=== PATIENT | female | born 1955 | race Two or more races ===

== ENCOUNTER → 2017-06-12 | Outpatient (CLI) | payer MEDICARE, OTHER ==
[~2017-06-12] MED LIST: ATOR10TA PO; CHOL500023 PO; LISI10TA6 PO; MELO-85 PO; METF-370 PO; METO-169 PO
== END | disposition home or self-care (01) ==
LOC: Rad HDHVI 10:57
PROVIDERS: ATTEND Internal Medicine Cardiovascular Disease
DX: I10 Essential (primary) hypertension (principal); E78.2 Mixed hyperlipidemia
CPT/HCPCS: 93306

== ENCOUNTER → 2019-09-27 | Outpatient (CLI) | payer MEDICARE, OTHER ==
[~2019-09-27] VITALS: Ht 162.6 cm; Wt 113.4 kg
[~2019-09-27] MED LIST changes: +ADENOSINE 90 MG/30 ML INJ IV ONE; +ADENOSINE 95 MG in GIVE UN-DILUTED 0 ML IV ONE; -MELO-85 PO; +MELO1TAB73 PO
== END | disposition home or self-care (01) ==
LOC: Rad HDHVI 12:51
PROVIDERS: ATTEND Internal Medicine Cardiovascular Disease
DX: E11.9 Type 2 diabetes mellitus without complications (principal); R00.0 Tachycardia, unspecified; I42.1 Obstructive hypertrophic cardiomyopathy; I27.81 Cor pulmonale (chronic); E78.00 Pure hypercholesterolemia, unspecified; I10 Essential (primary) hypertension
CPT/HCPCS: 78452; 93005; 93306; 96374; 96375; A9500; J0153

== ENCOUNTER → 2020-12-25 | Outpatient (CLI) | payer MEDICARE, OTHER ==
[~2020-12-25] VITALS: Ht 162.6 cm; Wt 135.2 kg
[~2020-12-25] MED LIST changes: +ADENOSINE 114 MG in GIVE UN-DILUTED 0 ML IV ONE; -ADENOSINE 95 MG in GIVE UN-DILUTED 0 ML IV ONE; +LISI-716 PO; -LISI10TA6 PO; -METO-169 PO; +METO-289 PO
== END | disposition home or self-care (01) ==
LOC: Rad HDHVI 14:01
PROVIDERS: ATTEND Internal Medicine Cardiovascular Disease
DX: I10 Essential (primary) hypertension (principal); E78.5 Hyperlipidemia, unspecified; E11.21 Type 2 diabetes mellitus with diabetic nephropathy; E11.42 Type 2 diabetes mellitus with diabetic polyneuropathy; Z82.49 Family history of ischemic heart disease and other diseases of the circulatory system
CPT/HCPCS: 78452; 93005; 96374; 96375; A9500; J0153

== ENCOUNTER → 2022-01-17 | Outpatient (CLI) | payer MEDICARE, OTHER ==
[~2022-01-17] MED LIST changes: -ADENOSINE 114 MG in GIVE UN-DILUTED 0 ML IV ONE; -ADENOSINE 90 MG/30 ML INJ IV ONE
== END | disposition home or self-care (01) ==
LOC: Rad HDHVI 10:28
PROVIDERS: ATTEND Internal Medicine Cardiovascular Disease
DX: I51.7 Cardiomegaly (principal); I10 Essential (primary) hypertension; E78.5 Hyperlipidemia, unspecified
CPT/HCPCS: 93306

== ENCOUNTER → 2022-01-29 | Outpatient (CLI) | payer MEDICARE, OTHER ==
[~2022-01-29] VITALS: Ht 162.6 cm; Wt 148.8 kg
[~2022-01-29] MED LIST changes: +ADENOSINE 125 MG in GIVE UN-DILUTED 0 ML IV ONE; +ADENOSINE 90 MG/30 ML INJ IV ONE
== END | disposition home or self-care (01) ==
LOC: Rad HDHVI 12:37
PROVIDERS: ATTEND Internal Medicine Cardiovascular Disease
DX: I10 Essential (primary) hypertension (principal); E11.9 Type 2 diabetes mellitus without complications; E78.5 Hyperlipidemia, unspecified; Z82.49 Family history of ischemic heart disease and other diseases of the circulatory system
CPT/HCPCS: 78452; 93005; 96374; 96375; A9500; J0153

== ENCOUNTER → 2024-12-20 | Outpatient (CLI) | payer MEDICARE, OTHER ==
[~2024-12-20] MED LIST changes: -ADENOSINE 125 MG in GIVE UN-DILUTED 0 ML IV ONE; -ADENOSINE 90 MG/30 ML INJ IV ONE; -LISI-716 PO; +LISI10TA34 PO; -MELO1TAB73 PO; +MELO7.5T7 PO
[2024-12-20 13:00] VITALS: BP 129/65; PULSE 74; RESP 20; O2SAT 97
[2024-12-20] MEDS: methylPREDNISolone SOD SUCC 125 MG/2 ML VL IV ONE (13:00)
[2024-12-20] MEDS: cefTRIAXone 1GM/50ML D5W 50 ML IV ONE ×2 (13:00→13:03)
[2024-12-20] MEDS: SODIUM CHLORIDE 0.9% 500 ML IV ONE (13:00)
[2024-12-20] MEDS: methylPREDNISolone SOD SUCC 125 MG/2 ML VL ONE (13:03)
[2024-12-20] MEDS: IOHEXOL 350 MG/ML 100ML IJ ONE (13:05)
--- NOTE | 2024-12-20 15:30 | DVH ---
Procedure: CT CHEST WITH CONTRAST 12/20/2024 02:34 PM History: RECURRING PNUEMONIA Comparison: None Technique: After the uneventful administration of contrast intravenously, CT imaging was performed th rough the chest. Coronal and sagittal reformations were performed by the technologist. 3D image postprocessing was performed on a dedicated workstation and images were used for interpretat ion and reporting. Radiation Dose : CT Dose: CTDI volume is 29.02 mGy. Dose-length product is 1145.87 mGy*cm Findings: Lower neck: Normal thyroid. Lungs: No focal consolidation. Heart/Vascular Structures: Enlargement of the main pulmonary artery measuring up to 3.4 cm. This may represent a component of underlying pulmonary arterial hypertension. Lymph Nodes: No adenopathy Pleura: No pleural effusion or significant pneumothorax. Musculoskeletal: No acute osseous abnormality. Degenerative changes of the spine. Soft tissues: Normal. Upper abdomen: Bilateral fat containing adrenal nodules likely representing adrenal myelolipomas marko uring 3.7 cm on the left and 1.3 cm on the right. IMPRESSION: No evidence of acute intrathoracic pathology identified.
[2024-12-20 15:40] VITALS: BP 127/80; PULSE 87; RESP 18; O2SAT 98
== END | disposition home or self-care (01) ==
LOC: Rad HDHVI 12:41
PROVIDERS: ATTEND Internal Medicine Cardiovascular Disease
DX: J18.9 Pneumonia, unspecified organism (principal); E86.0 Dehydration; R05.9 Cough, unspecified; R09.89 Other specified symptoms and signs involving the circulatory and respiratory systems; Z90.710 Acquired absence of both cervix and uterus
CPT/HCPCS: 71260; 96361; 96365; 96375; G0463; J0696; J2919; J7040; Q9967; 96360

== ENCOUNTER → 2024-12-26 | Outpatient (CLI) | payer MEDICARE, OTHER | END | disposition home or self-care (01) | LOC: Rad HDHVI 13:05 | PROVIDERS: ATTEND Internal Medicine Cardiovascular Disease | DX: I10 Essential (primary) hypertension (principal); E78.5 Hyperlipidemia, unspecified | CPT/HCPCS: 93306 ==

== ENCOUNTER 2025-08-17 10:47 | Inpatient (IN) | payer MEDICARE, OTHER ==
[~2025-08-17] VITALS: Ht 162.6 cm; Wt 76.8 kg
[~2025-08-17 10:47] MED LIST changes: +BUME1TAB3 PO; +CLOP75TA70 PO; +IBUP-1455 PO; +POTA-180 PO
--- NOTE | 2025-08-17 11:08 | ED.PDOC ---
HPI Comments This is a 70 year old female presenting to the ED with chief complaint of chest pain. Patient reports that she has been experiencing left sided facial pain with associated dizzy spells, and bilateral leg swelling for the past few days, however, she started to experience left sided chest discomfort radiating down her left arm since 3am. Patient relays that she visited Dr. Bronson's office on Thursday and she was told her platelet level was "through the roof." Patient states she called Dr. Bronosn this morning and was told to come into the ED for further evaluation and have the ED doctor call his office. Patient denies any SOB, N/V, abdominal pain, headache, syncope, or numbness. Time Seen by MD: 11:01 Primary Care Provider: DR BRONSON Reviewed Notes: Nurses Notes, Medications, Allergies Allergies: Coded Allergies: Hydromorphone (Verified Allergy, Mild, 06/16/11) Tramadol (Verified Allergy, Unknown, 09/27/19) Home Meds Reported Medications Bumetanide (Bumetanide) 1 Mg Tab, 1 TAB PO DAILY for 30 Days, #30 08/21/25 Ibuprofen Micronized (Ibuprofen) 800 Mg Tab, 1 TAB PO TID for 30 Days, #30 08/21/25 Potassium Chloride (Potassium Chloride ER) 20 Meq Tab, 1 TAB PO DAILY for 30 Days, #30 08/21/25 Clopidogrel Bisulfate (CLOPIDOGREL) 75 Mg Tab, 1 TAB PO DAILY for 30 Days, #30 08/21/25 Atorvastatin Calcium (Lipitor) 10 Mg Tab, 1 TAB PO HS for 60 Days, #60 03/11/17 Lisinopril (Lisinopril) 10 Mg Tab, 10 MG PO BID for 60 Days, #120 03/11/17 Metoprolol Succinate (Metoprolol Succinate Er) 50 Mg Tab, 1 TAB PO DAILY for 60 Days, #60 03/11/17 Metformin Hydrochloride (Metformin Hcl) 500 Mg Tab, 1 TAB PO DAILY for 60 Days, #60 03/11/17 Information Source: Patient Mode of Arrival: Wheelchair Severity: Moderate Timing: Hours Duration: Since onset Prehospital treatment: None Location: Chest (L) Radiation: Jaw, Arm (L) Quality: Aching Onset: At Rest Cardiac Risk Factors: HTN, None PE Risk Factors: None Past Medical History PAST MEDICAL HISTORY: CHF, HTN Surgical History: Appendectomy, Cholecystectomy, , Hysterectomy LATIN TEACHER History: Denies all LATIN TEACHER Hx Family History Family History: No family hx of Heart rustam, No family hx of HTN Social History Smoker: Non-Smoker Alcohol: Denies ETOH Use Drugs: Denies Drug Use Lives In: Home Constitutional: denies: chills, diaphoresis, fatigue, fever, malaise, sweats, weakness, others EENTM: denies: blurred vision, double vision, ear bleeding, ear discharge, ear drainage, ear pain, ear ringing, eye pain, eye redness, hearing loss, mouth pain, mouth swelling, nasal discharge, nose bleeding, nose congestion, nose pain, photophobia, tearing, throat pain, throat swelling, voice changes, others Respiratory: denies: cough, hemoptysis, orthopnea, SOB at rest, shortness of breath, SOB with excertion, stridor, wheezing, others Cardiovascular: reports: chest pain, dizzy spells, edema, left arm pain; denies: diaphoresis, Dyspnea on exertion, irregular heart beat, lightheadedness, palpitations, PND, syncope, others Gastrointestinal: denies: abdomen distended, abdominal pain, blood streaked bowels, constipated, diarrhea, dysphagia, difficulty swallowing, hematemesis, melena, nausea, poor appetite, poor fluid intake, rectal bleeding, rectal pain, vomiting, others Genitourinary: denies: abnormal vagina bleeding, burning, dyspareunia, dysuria, flank pain, frequency, hematuria, incontinence, pain, , vagina discharge, urgency, others Neurological: denies: dizziness, fainting, headache, left sided numbness, left sided weakness, numbness, paresthesia, pre-existing deficit, right sided numbness, right sided weakness, seizure, speech problems, tingling, tremors, weakness, others Musculoskeletal: denies: back pain, gout, joint pain, joint swelling, muscle pain, muscle stiffness, neck pain, others Integumetry: denies: bruises, change in color, change in hair/nails, dryness, laceration, lesions, lumps, rash, wounds, others Allergic/Immunocompromised: denies: Difficulty Healing, Frequent Infections, Hives, Itching, others Hematologic/Lymphatic: denies: anemia, blood clots, easy bleeding, easy bruising, swollen glands, others Endocrine: denies: excessive hunger, excessive sweating, excessive thirst, excessive urination, flushing, intolerance to cold, intolerance to heat, unexplained weight gain, unexplained weight loss, others Psychiatric: denies: anxiety, bipolar disorder, depression, hopeless, panic disorder, schizophrenia, sleepless, suicidal, others All Other Systems: Reviewed and Negative Physical Exam General Appearance: No Apparent Distress, Obese HEENT: Normal ENT Inspection, Pharynx Normal, TMs Normal Neck: Full Range of Motion, Non-Tender, Normal, Normal Inspection Respiratory: Chest Non-Tender, Lungs Clear, No Accessory Muscle Use, No Respiratory Distress, Normal Breath Sounds Cardiovascular: No JVD, No Murmur, No Gallop, Normal Peripheral Pulses, Regular Rate/Rhythm, Other (Bilateral lower extremity 2+ pitting edema) Breast Exam: Deferred Gastrointestinal: No Organomegaly, Non Tender, No Pulsatile Mass, Normal Bowel Sounds, Soft Genitalia: Deferred Pelvic: Deferred Rectal: Deferred Extremities: No calf tenderness, Normal capillary refill, Normal inspection, Normal range of motion, Non-tender, Pedal edema Musculoskeletal : Apperance: Normal Neurologic: Alert, technical writer II-XII nml as Tested, No Motor Deficits, Normal Affect, Normal Mood, No Sensory Deficits Cerebellar Function: Normal Reflexes: Normal Skin: Dry, Normal Color, Warm Lymphatic: No Adenopathy Was a procedure done? Was a procedure done?: No CP Differential Dx Differential Diagnosis: MAT, [place], PAC's Differential Diagnosis: Medical NonCompliance, Induced Differential Diagnosis: Chest Wall Pain, Myocardial Infarction, Pericarditis X-Ray, Labs, Meds, VS Vital Signs Date Time Temp Pulse Resp B/P (MAP) Pulse Ox O2 Delivery O2 Flow Rate FiO2 08/17/25 18:45 98.0 92 21 140/67 (91) 93 98.0 08/17/25 18:45 21 93 Nasal Cannula* 2 28 08/17/25 17:47 83 16 132/69 (90) 97 08/17/25 13:51 66 08/17/25 13:30 63 18 132/69 (90) 94 08/17/25 11:51 65 08/17/25 11:07 98.1 65 18 150/69 93 98.1 08/17/25 10:53 66 Lab Test 08/17/25 13:08 08/17/25 11:45 08/17/25 10:58 Range/Units Urine Color Light-yellow Yellow Urine Clarity Clear Clear Urine pH 6.0 5.0-9.0 Urine Specific [place] 1.023 1.001-1.035 Urine Protein Negative Negative Urine Ketones Negative Negative Urine Blood Negative Negative /uL Urine Nitrite Negative Negative Urine Bilirubin Negative Negative Urine Urobilinogen Normal Negative mg/dL Urine Leukocyte Esterase Negative Negative /uL Urine RBC 2 0 - 4 /hpf Urine Microscopic WBC 1 0-5 /HPF Urine Squamous Epithelial Cells Few <5 /hpf Urine Bacteria Few H None Seen /hpf Urine Glucose Normal Normal mg/dL Troponin I High Sensitivity < 3 L < 3 L </=34 ng/L White Blood Count 12.1 H 4.4-10.8 10^3/uL Red Blood Count 4.82 4.0-5.20 10^6/uL Hemoglobin 13.0 12.2-16.2 g/dL Hematocrit 40.5 36.0-46.0 % Mean Corpuscular Volume 83.9 80.0-100.0 fL Mean Corpuscular Hemoglobin 26.9 L 28.0-32.0 pg Mean Corpuscular Hemoglobin Concent 32.1 32.0-36.0 g/dL Red Cell Distribution Width 16.1 H 11.8-14.3 % Platelet Count 1262 *H 140-450 10^3/uL Mean Platelet Volume 7.3 6.9-10.8 fL Neutrophils (%) (Auto) 82.3 H 37.0-80.0 % Lymphocytes (%) (Auto) 7.4 L 10.0-50.0 % Monocytes (%) (Auto) 6.9 0.0-12.0 % Eosinophils (%) (Auto) 3.1 0.0-7.0 % Basophils (%) (Auto) 0.3 0.0-2.0 % Neutrophils # (Auto) 9.9 H 1.6-8.6 10 ^3/uL Lymphocytes # (Auto) 0.9 0.4-5.4 10 ^3/uL Monocytes # (Auto) 0.8 0-1.3 10 ^3/uL Eosinophils # (Auto) 0.4 0-0.8 10 ^3/uL Basophils # (Auto) 0 0-0.2 10 ^3/uL Nucleated Red Blood Cells 0.1 % Platelet Estimate Markedly increased Anisocytosis (manual) Slight Sodium Level 143 136-145 mmol/L Potassium Level 4.6 3.5-5.1 mmol/L Chloride Level 106 98-107 mmol/L Carbon Dioxide Level 26 20-31 mmol/L Anion Gap 11 5-15 Blood Urea Nitrogen 31 H 9-23 mg/dL Creatinine 1.12 H 0.550-1.02 mg/dL Glomerular Filtration Rate Calc 53 >90 mL/min BUN/Creatinine Ratio 27.7 H 10.0-20.0 Serum Glucose 94 74-106 mg/dL Calcium Level 9.4 8.7-10.4 mg/dL B-Type Natriuretic Peptide 55.04 0-100 pg/mL Time of 1ST Reevaluation: 12:00 Reevaluation 1ST: Unchanged Patient Education/Counseling: Diagnosis, Treatment Family Education/Counseling: No Family Present SEPSIS Sepsis Screen Physician Orders Electrocardigram (08/17/25 10:59) Electrocardigram (08/17/25 11:59) Electrocardigram (08/17/25 13:59) Chest Portable (08/17/25 10:59) Head Without Contrast (08/17/25 16:22) Vital Signs Date Time Temp Pulse Resp B/P (MAP) Pulse Ox O2 Delivery O2 Flow Rate FiO2 08/17/25 18:45 98.0 92 21 140/67 (91) 93 98.0 08/17/25 18:45 21 93 Nasal Cannula* 2 28 08/17/25 17:47 83 16 132/69 (90) 97 08/17/25 13:51 66 08/17/25 13:30 63 18 132/69 (90) 94 08/17/25 11:51 65 08/17/25 11:07 98.1 65 18 150/69 93 98.1 08/17/25 10:53 66 Laboratory Tests Test 08/17/25 10:58 White Blood Count 12.1 10^3/uL (4.4-10.8) H Departure 1 Departure Time of Disposition: 06:15 (Patient presented with chest pain that was co ncerning for possible STEMI, ACS, PE, Pneumonia, Muscle Strain, COPD, Dissection. Data: 1. I ordered and reviewed the result of at least 3 labs including a CBC, BMP, and Troponin. 2. I independently interpreted the following tests: EKG which shows sinus arrhythmia and Chest X-ray which shows benign chest.Risk:This patient has a high risk of morbidity due to further diagnostic testing or treatment and may suffer from an acute cardiac or respiratory disorder. Workup reveals concern for ACS and patient should be admitted for further workup and possible expert consultation. ) Impression: Primary Impression: Acute chest pain Disposition: ADMITTED INPATIENT Admit to: Tele Condition: Guarded Critical Care Note Critical Care Time?: Yes Critical care comment: Acute chest pain Authorized and Performed by: Rosina Solomon MD Total critical care time: Approximately 39 minutes Due to a high probability of clinically significant, life threatening deterioration, the patient required my highest level of preparedness to intervene emergently and I personally spent this critical care time directly and personally managing the patient. This critical care time included obtaining a history; examining the patient; pulse oximetry; ordering and review of studies; arranging urgent treatment with development of a management plan; evaluation of patient's response to treatment; frequent reassessment; and, discussions with other providers. This critical care time was performed to assess and manage the high probability of imminent, life-threatening deterioration that could result in multi-organ failure. It was exclusive of separately billable procedures and treating other patients and teaching time. Please see my other sections and the rest of the note for further information on patient assessment and treatment. Stability Stability form required: No Heart Score Heart Score: Heart Score Response (Comments) Value History Highly Suspicious 2 EKG Normal 0 Age >65 2 Risk Factors >3 or Hx ASHD 2 Troponin >3 x's Normal limit 2 Total 8 I personally scribed for ROSINA SOLOMON MD ([email or web address]) on 08/17/25 at 11:08. Electronically submitted by Jean Martin ([email or web address]). ROSINA SOLOMON MD Aug 17, 2025 11:08
--- NOTE | 2025-08-17 11:47 | DVH ---
INDICATION: sob TECHNIQUE: Frontal view of the chest. COMPARISON: CT CHEST WITH CONTRAST on DOS: 12/20/24 FINDINGS: Cardiomegaly with CHF.. The heart and mediastinal contours are grossly unremarkable. There is no dario dence of pleural disease. The lungs are clear. The bony structures of the chest are intact without fracture. IMPRESSION: 1. Cardiomegaly with CHF
[2025-08-17 13:20] LABS: Urine Protein, UAD Negative (Negative)
--- NOTE | 2025-08-17 17:04 | DVH ---
CT HEAD WITHOUT CONTRAST Indication: [facility] EXAM DATE: 08/17/2025 04:29 PM COMPARISON: None TECHNIQUE: CT of the head without intravenous contrast. RADIATION DOSE: CTDIvol: 57 mGy, DLP: 1009 mGy*cm FINDINGS: There is no intracranial hemorrhage. There is no extra-axial fluid, mass, mass effect or midline shif t. The ventricles are midline and normal in size. Basilar cisterns are patent. Smith-white differentia tion is maintained. Mastoids well pneumatized. Mild ethmoid sinus and left maxillary sinus disease.. Imaged portion of th e orbits are unremarkable. Bilateral extra auditory calcifications likely sequela of chronic otitis e xterna. The left mandibular condyle is subluxed anteriorly. IMPRESSION: No intracranial hemorrhage or mass effect. Subluxation of the left mandibular condyle anteriorly out of the condylar groove. Correlate for disl ocation.
[2025-08-17 18:45] VITALS: RESP 21; O2SAT 93
[2025-08-17] MEDS ORDERED: ONDANSETRON HCL 4 MG/2 ML VIAL IV PRN (19:30)
[2025-08-17] MEDS ORDERED: HYDROcodone-ACET 5/325MG TAB PO PRN (19:30)
[2025-08-17] MEDS ORDERED: NITROGLYCERIN 0.4 MG SL TAB SL PRN (19:30)
[2025-08-17] MEDS ORDERED: MORPHINE SULFATE INJ 2 MG/ml SYRG IV PRN (19:30)
--- NOTE | 2025-08-17 19:33 | DVHHP2 ---
History of Present Illness Reason for Visit: Chest pain History of Present Illness 70-year-old female presents for evaluation of chest pain. Patient reports being awakened today 3:30 a.m. with substernal chest pressure that was radiating to her left arm. She also associated having shortness for breath. No nausea or vomiting. She reports not being able to lay flat. She also reports worsening bilateral lower extremity swelling. Past Medical History Hypertension, congestive heart failure Past Surgical History Cholecystectomy, appendectomy, , hysterectomy Family History Noncontributory Smoke: No ALCOHOL: none Drugs: None Lives: with Family Review of Systems Review of Systems Review of systems are currently negative otherwise addressed in HPI. Allergies: Coded Allergies: Hydromorphone (Verified Allergy, Mild, 06/16/11) Tramadol (Verified Allergy, Unknown, 09/27/19) Medications Current Medications Medications Dose Ordered Sig/Pavel Route Start Time Stop Time Status Last Admin Dose Admin Furosemide 20 mg BIDD IV 08/18/25 06:00 UNV Clopidogrel Bisulfate 75 mg DAILY PO 08/18/25 10:00 UNV Lisinopril 10 mg BID PO 08/17/25 22:00 UNV Metoprolol Succinate 50 mg DAILY PO 08/18/25 10:00 UNV Atorvastatin Calcium 10 mg HS PO 08/17/25 22:00 UNV Acetaminophen/ Hydrocodone Bitart 1 tab Q4HP PRN PO 08/17/25 19:30 UNV Ondansetron HCl 4 mg Q4HP PRN IV 08/17/25 19:30 UNV Enoxaparin Sodium 40 mg DAILY SC 08/18/25 10:00 UNV Acetaminophen 650 mg Q6HP PRN PO 08/17/25 19:30 UNV Nitroglycerin 0.4 mg Q5MINP PRN SL 08/17/25 19:30 UNV Morphine Sulfate 2 mg Q30M PRN IV 08/17/25 19:30 UNV Exam Vital Signs Vital Signs Date Time Temp Pulse Resp B/P (MAP) Pulse Ox O2 Delivery O2 Flow Rate FiO2 08/17/25 18:45 98.0 92 21 140/67 (91) 93 98.0 Exam Gen: 70-year-old female in mild distress, morbidly obese Skin: Warm, dry, normal color and texture, no rash. HEENT: Normocephalic atraumatic, mucous membranes moist and pink. Neck: Cervical and supraclavicular nodes normal without enlargement, trachea is midline, thyroid gland is normal without masses. Pulmonary: Clear to auscultation and percussion bilaterally. Cardiac: Regular rate and rhythm. No murmur Abdomen: Soft, nontender, nondistended, bowel sounds present all 4 quadrants, no guarding, no rigidity, no organomegaly. Extremities: No cyanosis, clubbing, plus two bilateral pedal edema Neuro: Cranial nerves II through XII grossly intact, normal affect and speech, no focal motor deficits. Labs/Xrays ORDERING PHYSICIAN: ROSINA SOLOMON MD PROCEDURE(s): CXRP - CHEST PORTABLE REASON: sob ORDER NUMBER(s): [id number], ACCESSION NUMBER(s): [id number] INDICATION: sob TECHNIQUE: Frontal view of the chest. COMPARISON: CT CHEST WITH CONTRAST on DOS: 12/20/24 FINDINGS: Cardiomegaly with CHF.. The heart and mediastinal contours are grossly un remarkable. There is no evidence of pleural disease. The lungs are clear. The bony structures of the chest are intact without fracture. IMPRESSION: 1. Cardiomegaly with CHF Labs Test 08/17/25 13:08 Range/Units Urine Color Light-yellow Yellow Urine Clarity Clear Clear Urine pH 6.0 5.0-9.0 Urine Specific [place] 1.023 1.001-1.035 Urine Protein Negative Negative Urine Ketones Negative Negative Urine Blood Negative Negative /uL Urine Nitrite Negative Negative Urine Bilirubin Negative Negative Urine Urobilinogen Normal Negative mg/dL Urine Leukocyte Esterase Negative Negative /uL Urine RBC 2 0 - 4 /hpf Urine Microscopic WBC 1 0-5 /HPF Urine Squamous Epithelial Cells Few <5 /hpf Urine Bacteria Few H None Seen /hpf Urine Glucose Normal Normal mg/dL SEPSIS Sepsis Screen Date sepsis recognized/suspect: Aug 17, 2025 Time Sepsis recognized/suspect: 1110 Recent Procedure: No On Antibiotic Therapy: No Respiratory Rate >20: No Heart Rate >90: No Temp<36 C (96.8 F) or >38.3 C: No SBP <90 or MAP <65 mmHG: No New Acute Mental Status Change: No Is the patient on CPAP, BIPAP,: No Physician Orders Head Without Contrast (9/18/25 16:22) * Hematology/Oncology Consult (08/17/25 19:17) Furosemide Injection (Lasix Injection) (08/18/25 06:00) Bilat Lower Dvt (08/17/25 19:17) B-Type Natriuretic Peptide (08/17/25 19:17) Clopidogrel Bisulfate (Plavix) (08/18/25 10:00) Lisinopril Tablet (Zestril Tablet) (08/17/25 22:00) Metoprolol Xl Succinate (Toprol Xl) (08/18/25 10:00) Atorvastatin (Lipitor) (08/17/25 22:00) * Cardiology Consult (08/17/25 19:17) Basic Metabolic Panel (08/18/25 04:00) Admit (08/17/25 19:17) Hydrocodone-Acet 5/325mg Tab ([place] 5/32 (08/17/25 19:30) Ondansetron Hcl (Zofran) (08/17/25 19:30) Enoxaparin Sodium (Lovenox) (08/18/25 10:00) Cardiac Diet-2gna,Lofat,Lochol (08/18/25 Breakfast) Condition: Stable (08/17/25 19:17) Acetaminophen Tablet (Tylenol Tablet) (08/17/25 19:30) Bedrest With Bathroom Privileg (08/17/25 19:17) Nitroglycerin Sublingual (Ntrostat Subli (08/17/25 19:30) Morphine Sulfate Injection (08/17/25 19:30) Stat Ekg For Chest Pain (08/17/25 19:17) Notify Md Of Changes From Base (08/17/25 19:17) Automobile Damage Appraiser For 24 Hours (08/17/25 19:17) Emergency Dysrhythmia Protocol (08/17/25 19:17) Rhythm Strips Once Every Shift (08/17/25 19:17) Oxygen By Nasal Cannula (08/17/25 19:17) Vital Signs Date Time Temp Pulse Resp B/P (MAP) Pulse Ox O2 Delivery O2 Flow Rate FiO2 08/17/25 18:45 98.0 92 21 140/67 (91) 93 98.0 08/17/25 17:47 83 16 132/69 (90) 97 08/17/25 13:51 66 08/17/25 13:30 63 18 132/69 (90) 94 08/17/25 11:51 65 Assessment/Plan Assessment/Plan Assessment Chest pain Thrombocytosis Congestive heart failure Plan Admit the patient to telemetry to the hospitalist Cardiology consultation Hematology consult Resume home medications IV Lasix DVT study pending Continue treatment per orders. Plan discussed with: Patient My Orders Orders - KARLA PATTON AGACNP Procedure Category Date Status Time * Hematology/Oncology CONS 08/17/25 Transmitted Consult 19:17 Furosemide Injection PHA 08/18/25 Logged (Lasix Injection) 06:00 Bilat Lower Dvt US 08/17/25 Logged 19:17 B-Type Natriuretic LAB 08/17/25 Logged Peptide 19:17 Clopidogrel Bisulfate PHA 08/18/25 Logged (Plavix) 10:00 Lisinopril Tablet PHA 08/17/25 Logged (Zestril Tablet) 22:00 Metoprolol Xl PHA 08/18/25 Logged Succinate (Toprol Xl) 10:00 Atorvastatin (Lipitor) PHA 08/17/25 Logged 22:00 * Cardiology Consult CONS 08/17/25 Transmitted 19:17 Basic Metabolic Panel LAB 08/18/25 Verified 04:00 Admit ADMIT 08/17/25 Transmitted 19:17 Hydrocodone-Acet PHA 08/17/25 Logged 5/325mg Tab ([place] 19:30 Ondansetron Hcl PHA 08/17/25 Logged (Zofran) 19:30 Enoxaparin Sodium PHA 08/18/25 Logged (Lovenox) 10:00 Cardiac DIET 08/18/25 Transmitted Diet-2gna,Lofat,Lochol Breakfast Condition: Stable ESTELLA 08/17/25 In Process 19:17 Acetaminophen Tablet PHA 08/17/25 Logged (Tylenol Tablet) 19:30 Bedrest With Bathroom ESTELLA 08/17/25 In Process Privileg 19:17 Nitroglycerin PHA 08/17/25 Logged Sublingual (Ntrostat 19:30 Morphine Sulfate PHA 08/17/25 Logged Injection 19:30 Stat Ekg For Chest ESTELLA 08/17/25 In Process Pain 19:17 Notify Of Changes ESTELLA 08/17/25 In Process From Base 19:17 Automobile Damage Appraiser For ESTELLA 08/17/25 In Process 24 Hours 19:17 Emergency Dysrhythmia [facility] 08/17/25 In Process Protocol 19:17 Rhythm Strips Once [facility] 08/17/25 In Process Every Shift 19:17 Oxygen By Nasal RT 08/17/25 Transmitted Cannula 19:17 Date of Service: Aug 17, 2025 Billing Provider: KARLA PATTON Common Visit Codes: [id number] INP/OBS CARE (HIGH) KARLA PATTON Aug 17, 2025 19:33
[2025-08-17 20:16] LABS: Hemoglobin 13.0 g/dL (12.2-16.2); Mean Corpuscular Volume 83.9 fL (80.0-100.0)
[2025-08-17 20:17] LABS: Hematocrit 40.5 % (36.0-46.0); Mean Corpuscular Hemoglobin 26.9 pg (28.0-32.0); Nucleated Red Blood Cells % 0.1 %
[2025-08-17 20:18] LABS: Chloride 106 mmol/L (98-107); Potassium 4.6 mmol/L (3.5-5.1); Sodium 143 mmol/L (136-145)
[2025-08-17 20:19] LABS: Anion Gap 11 (5-15); Calcium 9.4 mg/dL (8.7-10.4); Carbon Dioxide 26 mmol/L (20-31)
[2025-08-17 20:24] LABS: BUN/Creatinine Ratio 27.7 (10.0-20.0); Glucose 94 mg/dL (74-106)
--- NOTE | 2025-08-17 20:26 | DVH ---
Bilateral lower extremity venous duplex Clinical History: r/o dvt Comparison: None Technique: Duplex Doppler evaluation of the deep venous systems of both lower extremities from the common femora l veins to the popliteal veins including color Doppler and spectral/pulsed waveform analysis was perf ormed. Findings: RIGHT SIDE: The common femoral vein demonstrates appropriate compressibility and waveform variability. There is compressibility/patency of the great saphenous vein at the proximal thigh. The femoral vein demonstrates appropriate compressibility and waveform variability. The deep femoral vein demonstrates appropriate compressibility and waveform variability. The popliteal vein demonstrates appropriate compressibility and waveform variability. There is normal compressibility at the tibioperoneal trunk. LEFT SIDE: The common femoral vein demonstrates appropriate compressibility and waveform variability. There is compressibility/patency of the great saphenous vein at the proximal thigh. The femoral vein demonstrates appropriate compressibility and waveform variability. The deep femoral vein demonstrates appropriate compressibility and waveform variability. The popliteal vein demonstrates appropriate compressibility and waveform variability. There is normal compressibility at the tibioperoneal trunk. Impression: 1. No right or left femoropopliteal venous thrombosis.
[2025-08-17 21:11] LABS: Blood Urea Nitrogen 31 mg/dL (9-23)
[2025-08-17] MEDS: ATORVASTATIN 20 MG TAB PO SCH (21:36)
[2025-08-17] MEDS: LISINOPRIL 20 MG TAB PO SCH (21:36)
[2025-08-17 21:50] LABS: Anisocytosis Slight
[2025-08-18] VITALS (9 sets, daily range): BP systolic 119–142; BP diastolic 67–81; PULSE 64–91; RESP 14–19; TEMP 97.7–98.2; O2SAT 78–99
[2025-08-18 04:43] LABS: Anion Gap 8 (5-15); Carbon Dioxide 30 mmol/L (20-31); Chloride 107 mmol/L (98-107); Potassium 4.7 mmol/L (3.5-5.1)
[2025-08-18 04:44] LABS: Calcium 9.3 mg/dL (8.7-10.4)
[2025-08-18 04:49] LABS: BUN/Creatinine Ratio 29.3 (10.0-20.0)
[2025-08-18 04:52] LABS: Blood Urea Nitrogen 34 mg/dL (9-23); Glucose 131 mg/dL (74-106); Sodium 145 mmol/L (136-145)
[2025-08-18] MEDS: FUROSEMIDE 20 MG/2 ML VIAL IV SCH (06:00)
[2025-08-18] MEDS: CLOPIDOGREL BISULFATE 75 MG TAB PO SCH (10:57)
[2025-08-18] MEDS: METOPROLOL SUCCINATE XL 50 MG TAB PO SCH (10:58)
[2025-08-18] MEDS: ENOXAPARIN SOD 40 MG/0.4 ML SYRINGE SC SCH (10:59)
--- NOTE | 2025-08-18 13:35 | DVHPN2 ---
Reviewed: Care Plan, H&P, Labs, Medications, Previous Orders, Radiology Changes from previous H/P or p: No Changes Objective Vitals Vital Signs Date Time Temp Pulse Resp B/P (MAP) Pulse Ox O2 Delivery O2 Flow Rate FiO2 08/18/25 12:52 98.1 79 16 119/67 (84) 78 98.1 08/17/25 19:30 Nasal Cannula* 2 28 Medications Current Medications Medications Dose Ordered Sig/Pavel Route Start Time Stop Time Status Last Admin Dose Admin Furosemide 20 mg BIDD IV 08/18/25 06:00 Clopidogrel Bisulfate 75 mg DAILY PO 08/18/25 10:00 08/18/25 10:57 75 MG Lisinopril 10 mg BID PO 08/17/25 22:00 08/18/25 10:58 10 MG Metoprolol Succinate 50 mg DAILY PO 08/18/25 10:00 08/18/25 10:58 50 MG Atorvastatin Calcium 10 mg HS PO 08/17/25 22:00 08/17/25 21:36 10 MG Acetaminophen/ Hydrocodone Bitart 1 tab Q4HP PRN PO 08/17/25 19:30 Ondansetron HCl 4 mg Q4HP PRN IV 08/17/25 19:30 Enoxaparin Sodium 40 mg DAILY SC 08/18/25 10:00 08/18/25 10:59 40 MG Acetaminophen 650 mg Q6HP PRN PO 08/17/25 19:30 Nitroglycerin 0.4 mg Q5MINP PRN SL 08/17/25 19:30 Morphine Sulfate 2 mg Q30M PRN IV 08/17/25 19:30 Laboratory Results Laboratory Tests 08/17/25 10:58 08/18/25 03:30 Chemistry Test 08/18/25 03:30 Calcium Level 9.3 mg/dL (8.7-10.4) Urinalysis Test 08/17/25 13:08 Urine Color Light-yellow (Yellow) Urine Clarity Clear (Clear) Urine pH 6.0 (5.0-9.0) Urine Specific [place] 1.023 (1.001-1.035) Urine Protein Negative (Negative) Urine Ketones Negative (Negative) Urine Blood Negative /uL (Negative) Urine Nitrite Negative (Negative) Urine Bilirubin Negative (Negative) Urine Urobilinogen Normal mg/dL (Negative) Urine Leukocyte Esterase Negative /uL (Negative) Urine RBC 2 /hpf (0 - 4) Urine Microscopic WBC 1 /HPF (0-5) Urine Squamous Epithelial Cells Few /hpf (<5) Urine Bacteria Few /hpf (None Seen) H Urine Glucose Normal mg/dL (Normal) Labs and/or images reviewed: Labs reviewed by me, Image(s) reviewed by me Assessment/Plan Assessment/Plan Chest pain troponin negative, cardiology consult for Dr. Tilley Thrombocytosis platelet 1200, consult for Hematology Acute CHF exacerbation: Lasix consult for Dr. Lopez Hypotension CT head negative DVT ruled out Time spent 50 minutes Plan discussed with: Patient My Orders Orders - AGUS LEWIS MD Procedure Category Date Status Time * Cardiology Consult CONS 08/18/25 Transmitted 13:31 Date of Service: Aug 18, 2025 Billing Provider: AGUS LEWIS MD Common Visit Codes: [id number] INP/OBS CARE(HIGH) AGUS LEWIS MD Aug 18, 2025 13:35
[2025-08-18] MEDS ORDERED: FUROSEMIDE INJECTION 100 MG in SODIUM CHL 0.9% 100 ML IV SCH (14:15)
--- NOTE | 2025-08-18 14:20 | DVHPN2 ---
Progress Note - Dictate Date Seen: Aug 17, 2025 Medical Necessity Reason Pt with a Central, PICC or Fol: No Subjective PT WELL KNOWN TO ME OBESITY PAH RIGHT SIDED HEART FAILURE WITH PRESERVED SYSTOLIC FUNCTION ANASARCA FELIX METABOLIC SYNDROME vital signs Vital Sign Date Time Temp Pulse Resp B/P (MAP) Pulse Ox O2 Delivery O2 Flow Rate FiO2 08/18/25 12:52 98.1 79 16 119/67 (84) 78 98.1 08/17/25 19:30 Nasal Cannula* 2 28 medications Current Medications Medications Dose Ordered Sig/Pavel Route Start Time Stop Time Status Last Admin Dose Admin Furosemide 20 mg BIDD IV 08/18/25 06:00 Clopidogrel Bisulfate 75 mg DAILY PO 08/18/25 10:00 08/18/25 10:57 75 MG Lisinopril 10 mg BID PO 08/17/25 22:00 08/18/25 10:58 10 MG Metoprolol Succinate 50 mg DAILY PO 08/18/25 10:00 08/18/25 10:58 50 MG Atorvastatin Calcium 10 mg HS PO 08/17/25 22:00 08/17/25 21:36 10 MG Acetaminophen/ Hydrocodone Bitart 1 tab Q4HP PRN PO 08/17/25 19:30 Ondansetron HCl 4 mg Q4HP PRN IV 08/17/25 19:30 Enoxaparin Sodium 40 mg DAILY SC 08/18/25 10:00 08/18/25 10:59 40 MG Acetaminophen 650 mg Q6HP PRN PO 08/17/25 19:30 Nitroglycerin 0.4 mg Q5MINP PRN SL 08/17/25 19:30 Morphine Sulfate 2 mg Q30M PRN IV 08/17/25 19:30 laboratory and microbiology Laboratory Tests 08/18/25 03:30 08/17/25 10:58 Test 08/18/25 03:30 Range/Units Serum Glucose 131 H 74-106 mg/dL Problem List OBESITY PAH RIGHT SIDED HEART FAILURE WITH PRESERVED SYSTOLIC FUNCTION ANASARCA FELIX METABOLIC SYNDROME Assessment/Plan LASIX DRIP ABG DAILY BMP FOR K+ MONITORING Plan discussed with: Patient Critical Care Time(min): 35 AUDIE SYLVESTER MD Aug 18, 2025 14:20
--- NOTE | 2025-08-18 14:20 | DVHPN2 ---
Progress Note - Dictate Date Seen: Aug 18, 2025 Medical Necessity Reason Pt with a Central, PICC or Fol: No Subjective PT WELL KNOWN TO ME OBESITY PAH RIGHT SIDED HEART FAILURE WITH PRESERVED SYSTOLIC FUNCTION ANASARCA FELIX METABOLIC SYNDROME vital signs Vital Sign Date Time Temp Pulse Resp B/P (MAP) Pulse Ox O2 Delivery O2 Flow Rate FiO2 08/18/25 12:52 98.1 79 16 119/67 (84) 78 98.1 08/17/25 19:30 Nasal Cannula* 2 28 medications Current Medications Medications Dose Ordered Sig/Pavel Route Start Time Stop Time Status Last Admin Dose Admin Furosemide 20 mg BIDD IV 08/18/25 06:00 Clopidogrel Bisulfate 75 mg DAILY PO 08/18/25 10:00 08/18/25 10:57 75 MG Lisinopril 10 mg BID PO 08/17/25 22:00 08/18/25 10:58 10 MG Metoprolol Succinate 50 mg DAILY PO 08/18/25 10:00 08/18/25 10:58 50 MG Atorvastatin Calcium 10 mg HS PO 08/17/25 22:00 08/17/25 21:36 10 MG Acetaminophen/ Hydrocodone Bitart 1 tab Q4HP PRN PO 08/17/25 19:30 Ondansetron HCl 4 mg Q4HP PRN IV 08/17/25 19:30 Enoxaparin Sodium 40 mg DAILY SC 08/18/25 10:00 08/18/25 10:59 40 MG Acetaminophen 650 mg Q6HP PRN PO 08/17/25 19:30 Nitroglycerin 0.4 mg Q5MINP PRN SL 08/17/25 19:30 Morphine Sulfate 2 mg Q30M PRN IV 08/17/25 19:30 laboratory and microbiology Laboratory Tests 08/18/25 03:30 08/17/25 10:58 Test 08/18/25 03:30 Range/Units Serum Glucose 131 H 74-106 mg/dL Problem List OBESITY PAH RIGHT SIDED HEART FAILURE WITH PRESERVED SYSTOLIC FUNCTION ANASARCA FELIX METABOLIC SYNDROME Assessment/Plan LASIX DRIP ABG DAILY BMP FOR K+ MONITORING Plan discussed with: Patient AUDIE SYLVESTER MD Aug 18, 2025 14:20
[2025-08-18 16:56] LABS: Hemoglobin 12.8 g/dL (12.2-16.2); Mean Corpuscular Hemoglobin 26.4 pg (28.0-32.0); Nucleated Red Blood Cells % 0.0 %
[2025-08-18 16:58] LABS: Hematocrit 40.1 % (36.0-46.0); Mean Corpuscular Volume 82.8 fL (80.0-100.0)
[2025-08-18 17:10] LABS: Alanine Aminotransferase 13 U/L (7-40); Alkaline Phosphatase 103 U/L (46-116); Anion Gap 11 (5-15); BUN/Creatinine Ratio 37.8 (10.0-20.0); Potassium 4.4 mmol/L (3.5-5.1); Sodium 144 mmol/L (136-145); Total Protein 5.9 g/dL (5.7-8.2)
[2025-08-18 17:11] LABS: Albumin 3.5 g/dL (3.2-4.8)
[2025-08-18 17:12] LABS: Bilirubin, Total 1.5 mg/dL (0.2-1.0); Blood Urea Nitrogen 37 mg/dL (9-23); Calcium 9.1 mg/dL (8.7-10.4); Carbon Dioxide 25 mmol/L (20-31); Chloride 108 mmol/L (98-107); Glucose 115 mg/dL (74-106)
[2025-08-18] MEDS: FUROSEMIDE INJECTION 100 MG in SODIUM CHL 0.9% 100 ML IV SCH (17:40)
[2025-08-19] VITALS (9 sets, daily range): BP systolic 92–133; BP diastolic 49–85; PULSE 68–96; RESP 16–18; TEMP 97.1–98.6; O2SAT 91–99
[2025-08-19 07:30] LABS: Nucleated Red Blood Cells % 0.0 %
[2025-08-19 07:33] LABS: Hematocrit 39.5 % (36.0-46.0); Hemoglobin 13.1 g/dL (12.2-16.2); Mean Corpuscular Hemoglobin 26.6 pg (28.0-32.0); Mean Corpuscular Volume 80.3 fL (80.0-100.0)
[2025-08-19 08:00] LABS: Chloride 99 mmol/L (98-107); Potassium 3.7 mmol/L (3.5-5.1); Sodium 143 mmol/L (136-145)
[2025-08-19] MEDS: POTASSIUM EFFERVESENT TAB 25 MEQ PO SCH (08:44)
--- NOTE | 2025-08-19 09:14 | DVHPN2 ---
Reviewed: Care Plan, H&P, Labs, Medications, Previous Orders, Radiology Changes from previous H/P or p: No Changes Objective Vitals Vital Signs Date Time Temp Pulse Resp B/P (MAP) Pulse Ox O2 Delivery O2 Flow Rate FiO2 08/19/25 05:00 98.0 77 18 119/78 (92) 95 98.0 08/18/25 20:00 Nasal Cannula* 2 28 Intake/Output Intake and Output 08/19/25 07:00 Intake Total 820 ml Output Total 3200 ml Balance -2380 ml Intake Oral 600 ml IV Total 220 ml Output Urine Total 3200 ml # Voids 5 Medications Current Medications Medications Dose Ordered Sig/Pavel Route Start Time Stop Time Status Last Admin Dose Admin Clopidogrel Bisulfate 75 mg DAILY PO 08/18/25 10:00 08/18/25 10:57 75 MG Lisinopril 10 mg BID PO 08/17/25 22:00 08/18/25 21:30 10 MG Metoprolol Succinate 50 mg DAILY PO 08/18/25 10:00 08/18/25 10:58 50 MG Atorvastatin Calcium 10 mg HS PO 08/17/25 22:00 08/18/25 21:29 10 MG Acetaminophen/ Hydrocodone Bitart 1 tab Q4HP PRN PO 08/17/25 19:30 Ondansetron HCl 4 mg Q4HP PRN IV 08/17/25 19:30 Enoxaparin Sodium 40 mg DAILY SC 08/18/25 10:00 08/18/25 10:59 40 MG Acetaminophen 650 mg Q6HP PRN PO 08/17/25 19:30 Nitroglycerin 0.4 mg Q5MINP PRN SL 08/17/25 19:30 Morphine Sulfate 2 mg Q30M PRN IV 08/17/25 19:30 Potassium Bicarbonate 50 meq DAILY PO 08/19/25 10:00 Furosemide 100 mg/ Sodium Chloride 110 ml @ 22 mls/hr Q5H IV 08/18/25 17:15 08/19/25 03:50 22 MLS/HR Laboratory Results Laboratory Tests 08/19/25 06:04 Chemistry Test 08/18/25 16:30 08/19/25 06:04 Albumin 3.5 g/dL (3.2-4.8) Pending Calcium Level 9.1 mg/dL (8.7-10.4) Pending Total Protein 5.9 g/dL (5.7-8.2) Pending Cardiac Markers Test 08/19/25 06:04 B-Type Natriuretic Peptide 23.22 pg/mL (0-100) LFT Test 08/18/25 16:30 08/19/25 06:04 Alanine Aminotransferase (ALT) 13 U/L (7-40) Pending Alkaline Phosphatase 103 U/L (46-116) Pending Aspartate Amino Transferase (AST) 16 U/L (13-40) Pending Total Bilirubin 1.5 mg/dL (0.2-1.0) H Pending Urinalysis Test 08/17/25 13:08 Urine Color Light-yellow (Yellow) Urine Clarity Clear (Clear) Urine pH 6.0 (5.0-9.0) Urine Specific [place] 1.023 (1.001-1.035) Urine Protein Negative (Negative) Urine Ketones Negative (Negative) Urine Blood Negative /uL (Negative) Urine Nitrite Negative (Negative) Urine Bilirubin Negative (Negative) Urine Urobilinogen Normal mg/dL (Negative) Urine Leukocyte Esterase Negative /uL (Negative) Urine RBC 2 /hpf (0 - 4) Urine Microscopic WBC 1 /HPF (0-5) Urine Squamous Epithelial Cells Few /hpf (<5) Urine Bacteria Few /hpf (None Seen) H Urine Glucose Normal mg/dL (Normal) Labs and/or images reviewed: Labs reviewed by me, Image(s) reviewed by me Assessment/Plan Assessment/Plan Chest pain troponin negative, cardiology consult for Dr. Tilley appreciated Thrombocytosis platelet 1200, consult for Hematology Acute CHF exacerbation: Lasix drip, potassium supplementation, consult for Dr. Lopez Pulmonary hypertension with right-sided heart failure with the preserved systolic function Anasarca Metabolic syndrome Dyspnea on exertion Hypertension CT head negative DVT ruled out Time spent 50 minutes Plan discussed with: Patient My Orders Orders - AGUS LEWIS MD Procedure Category Date Status Time * Cardiology Consult CONS 08/18/25 Transmitted 13:31 Comprehensive LAB 08/19/25 In Process Metabolic Panel 04:00 Complete Blood Count LAB 08/20/25 Verified 04:00 Comprehensive LAB 08/20/25 Verified Metabolic Panel 04:00 Date of Service: Aug 19, 2025 Billing Provider: AGUS LEWIS MD Common Visit Codes: [id number] INP/OBS CARE(HIGH) AGUS LEWIS MD Aug 19, 2025 09:14
[2025-08-19 09:26] LABS: Anion Gap 14 (5-15); Calcium 9.4 mg/dL (8.7-10.4); Carbon Dioxide 30 mmol/L (20-31)
[2025-08-19 09:31] LABS: Alkaline Phosphatase 102 U/L (46-116); BUN/Creatinine Ratio 25.0 (10.0-20.0); Glucose 101 mg/dL (74-106)
[2025-08-19 09:32] LABS: Total Protein 7.0 g/dL (5.7-8.2)
[2025-08-19 09:33] LABS: Alanine Aminotransferase 12 U/L (7-40); Albumin 3.9 g/dL (3.2-4.8)
[2025-08-19 09:34] LABS: Bilirubin, Total 1.5 mg/dL (0.2-1.0); Blood Urea Nitrogen 28 mg/dL (9-23)
[2025-08-20] VITALS (9 sets, daily range): BP systolic 93–122; BP diastolic 46–67; PULSE 65–102; RESP 16–18; TEMP 96.9–97.8; O2SAT 90–98
[2025-08-20 07:21] LABS: Hemoglobin 12.6 g/dL (12.2-16.2); Mean Corpuscular Volume 79.8 fL (80.0-100.0); Nucleated Red Blood Cells % 0.0 %
[2025-08-20 07:25] LABS: Hematocrit 38.2 % (36.0-46.0); Mean Corpuscular Hemoglobin 26.3 pg (28.0-32.0)
[2025-08-20 07:42] LABS: Alkaline Phosphatase 97 U/L (46-116); Anion Gap 11 (5-15); BUN/Creatinine Ratio 20.0 (10.0-20.0); Calcium 9.0 mg/dL (8.7-10.4); Glucose 103 mg/dL (74-106); Sodium 138 mmol/L (136-145); Total Protein 6.5 g/dL (5.7-8.2)
[2025-08-20 07:43] LABS: Albumin 3.7 g/dL (3.2-4.8)
[2025-08-20 07:52] LABS: Alanine Aminotransferase < 9 U/L (7-40); Bilirubin, Total 1.7 mg/dL (0.2-1.0); Blood Urea Nitrogen 27 mg/dL (9-23); Carbon Dioxide 34 mmol/L (20-31); Chloride 93 mmol/L (98-107); Potassium 3.4 mmol/L (3.5-5.1)
--- NOTE | 2025-08-20 07:58 | DVHPN2 ---
Reviewed: Care Plan, H&P, Labs, Medications, Previous Orders, Radiology Changes from previous H/P or p: No Changes Objective Vitals Vital Signs Date Time Temp Pulse Resp B/P (MAP) Pulse Ox O2 Delivery O2 Flow Rate FiO2 08/20/25 05:05 87 16 118/63 (81) 97 08/20/25 05:00 97.1 97.1 08/19/25 20:00 Nasal Cannula* 2 28 Intake/Output Intake and Output 08/20/25 07:00 Intake Total 1420 ml Output Total 4050 ml Balance -2630 ml Intake Oral 1200 ml IV Total 220 ml Output Urine Total 4050 ml Medications Current Medications Medications Dose Ordered Sig/Pavel Route Start Time Stop Time Status Last Admin Dose Admin Clopidogrel Bisulfate 75 mg DAILY PO 08/18/25 10:00 08/19/25 08:45 75 MG Lisinopril 10 mg BID PO 08/17/25 22:00 08/19/25 08:45 10 MG Metoprolol Succinate 50 mg DAILY PO 08/18/25 10:00 08/19/25 08:44 50 MG Atorvastatin Calcium 10 mg HS PO 08/17/25 22:00 08/19/25 21:11 10 MG Acetaminophen/ Hydrocodone Bitart 1 tab Q4HP PRN PO 08/17/25 19:30 Ondansetron HCl 4 mg Q4HP PRN IV 08/17/25 19:30 Enoxaparin Sodium 40 mg DAILY SC 08/18/25 10:00 08/19/25 08:43 40 MG Acetaminophen 650 mg Q6HP PRN PO 08/17/25 19:30 Nitroglycerin 0.4 mg Q5MINP PRN SL 08/17/25 19:30 Morphine Sulfate 2 mg Q30M PRN IV 08/17/25 19:30 Potassium Bicarbonate 50 meq DAILY PO 08/19/25 10:00 08/19/25 08:44 50 MEQ Furosemide 100 mg/ Sodium Chloride 110 ml @ 22 mls/hr Q5H IV 08/18/25 17:15 08/20/25 04:46 22 MLS/HR Laboratory Results Laboratory Tests 08/20/25 05:50 Chemistry Test 08/20/25 05:50 Albumin 3.7 g/dL (3.2-4.8) Calcium Level 9.0 mg/dL (8.7-10.4) Total Protein 6.5 g/dL (5.7-8.2) Cardiac Markers Test 08/20/25 05:50 B-Type Natriuretic Peptide 7.32 pg/mL (0-100) LFT Test 08/20/25 05:50 Alanine Aminotransferase (ALT) < 9 U/L (7-40) Alkaline Phosphatase 97 U/L (46-116) Aspartate Amino Transferase (AST) 14 U/L (13-40) Total Bilirubin 1.7 mg/dL (0.2-1.0) H Urinalysis Test 08/17/25 13:08 Urine Color Light-yellow (Yellow) Urine Clarity Clear (Clear) Urine pH 6.0 (5.0-9.0) Urine Specific [place] 1.023 (1.001-1.035) Urine Protein Negative (Negative) Urine Ketones Negative (Negative) Urine Blood Negative /uL (Negative) Urine Nitrite Negative (Negative) Urine Bilirubin Negative (Negative) Urine Urobilinogen Normal mg/dL (Negative) Urine Leukocyte Esterase Negative /uL (Negative) Urine RBC 2 /hpf (0 - 4) Urine Microscopic WBC 1 /HPF (0-5) Urine Squamous Epithelial Cells Few /hpf (<5) Urine Bacteria Few /hpf (None Seen) H Urine Glucose Normal mg/dL (Normal) Labs and/or images reviewed: Labs reviewed by me, Image(s) reviewed by me Assessment/Plan Assessment/Plan Chest pain troponin negative, cardiology consult for Dr. Tilley appreciated Thrombocytosis platelet 1200, consult for Hematology Acute CHF exacerbation: Lasix drip, potassium supplementation, consult for Dr. Lopez Pulmonary hypertension with right-sided heart failure with the preserved systolic function Anasarca Metabolic syndrome Dyspnea on exertion Hypertension CT head negative DVT ruled out Time spent 50 minutes Rapid flu test pending Christi test pending Plan discussed with: Patient, Other (RN) Date of Service: Aug 20, 2025 Billing Provider: AGUS LEWIS MD Common Visit Codes: [id number] INP/OBS CARE(HIGH) AGUS LEWIS MD Aug 20, 2025 07:57
[2025-08-20 18:20] LABS: COVID19 ANTIGEN SOFIA FIA NEGATIVE (NEGATIVE)
[2025-08-20 18:24] LABS: Nucleated Red Blood Cells % 0.0 %
[2025-08-20 18:25] LABS: Hematocrit 39.6 % (36.0-46.0); Hemoglobin 13.2 g/dL (12.2-16.2); Mean Corpuscular Hemoglobin 26.5 pg (28.0-32.0); Mean Corpuscular Volume 79.7 fL (80.0-100.0)
[2025-08-20 18:40] LABS: Alanine Aminotransferase 13 U/L (7-40); Albumin 3.6 g/dL (3.2-4.8); Alkaline Phosphatase 103 U/L (46-116); Anion Gap 10 (5-15); BUN/Creatinine Ratio 20.8 (10.0-20.0); Calcium 8.9 mg/dL (8.7-10.4); Potassium 3.9 mmol/L (3.5-5.1); Sodium 137 mmol/L (136-145); Total Protein 6.2 g/dL (5.7-8.2)
[2025-08-20 18:44] LABS: Bilirubin, Total 2.1 mg/dL (0.2-1.0); Blood Urea Nitrogen 38 mg/dL (9-23); Carbon Dioxide 36 mmol/L (20-31); Chloride 91 mmol/L (98-107); Glucose 155 mg/dL (74-106)
--- NOTE | 2025-08-20 23:01 | DVH ---
EXAM: CT HEAD WITHOUT CONTRAST INDICATION: ALOC TECHNIQUE: CT of the head without intravenous contrast. Radiation Dose Information: CT Dose: CTDI volume is 57.31 mGy. Dose-length product is 1014.8 mGy*cm The dose indicators for CT are the volume Computed Tomography (CT) Dose Index (CTDIvol) and the Dose Length Product (DLP), and are measured in units of mGy and mGy-cm, respectively. These indicators are not patient dose, but values generated from the CT scanner acquisition factors. The report includes radiation exposure data for exposures received during this examination. COMPARISON: CT HEAD WITHOUT CONTRAST on DOS: 08/17/25 FINDINGS: There is no evidence of acute intracranial hemorrhage, extra-axial collection, mass effect, midline s hift, herniation or hydrocephalus. The ventricles, sulci and cisterns are age appropriate. The sheets-white differentiation is intact. Patchy periventricular and subcortical white matter hypoattenuation is nonspecific but may be related to small vessel ischemic disease. Remote lacunar infarct within the right thymus. The visualized paranasal sinuses and mastoid air cells are clear. The surrounding soft tissues and osseous structures are unremarkable. IMPRESSION: 1. No acute intracranial abnormality.
[2025-08-21] VITALS (9 sets, daily range): BP systolic 97–118; BP diastolic 42–73; PULSE 85–105; RESP 16–20; TEMP 97.5–98.7; O2SAT 86–97
--- NOTE | 2025-08-21 10:33 | DVHPN2 ---
Progress Note Date Seen: Aug 21, 2025 Medical Necessity Reason Pt with a Central, PICC or Fol: Yes The following are medically ne: Cheney Catheter Reason for cheney catheter: Strict I&O Subjective Patient reports: No new complaints Review of Systems: HEENT:Normal, CVS:Normal, RESPIRATORY:Normal, GI:Normal, :Normal, MSK:Normal, NEURO:Normal Objective vital signs Vital Sign Date Time Temp Pulse Resp B/P (MAP) Pulse Ox O2 Delivery O2 Flow Rate FiO2 08/21/25 09:00 97.9 96 20 115/60 (78) 86 97.9 08/20/25 20:00 Nasal Cannula* 2 28 Total Intake and Output 08/20/25 08/20/25 08/21/25 15:00 23:00 07:00 Intake Total 650 ml 1000 ml Output Total 675 ml 450 ml Balance -25 ml 550 ml medications Current Medications Medications Dose Ordered Sig/Pavel Route Start Time Stop Time Status Last Admin Dose Admin Clopidogrel Bisulfate 75 mg DAILY PO 08/18/25 10:00 08/21/25 09:26 75 MG Lisinopril 10 mg BID PO 08/17/25 22:00 08/19/25 08:45 10 MG Metoprolol Succinate 50 mg DAILY PO 08/18/25 10:00 08/19/25 08:44 50 MG Atorvastatin Calcium 10 mg HS PO 08/17/25 22:00 08/20/25 21:03 10 MG Acetaminophen/ Hydrocodone Bitart 1 tab Q4HP PRN PO 08/17/25 19:30 Ondansetron HCl 4 mg Q4HP PRN IV 08/17/25 19:30 Enoxaparin Sodium 40 mg DAILY SC 08/18/25 10:00 08/21/25 09:29 40 MG Acetaminophen 650 mg Q6HP PRN PO 08/17/25 19:30 Nitroglycerin 0.4 mg Q5MINP PRN SL 08/17/25 19:30 Morphine Sulfate 2 mg Q30M PRN IV 08/17/25 19:30 Potassium Bicarbonate 50 meq DAILY PO 08/19/25 10:00 08/21/25 09:26 50 MEQ Examination: GENERAL:Normal, HEENT:Normal, NECK:Normal, LUNGS:Normal, CVS:Normal, ABDOMEN:Normal, MSK:Normal, MSK:Abnormal (CELLULITIS BOTH LEGS, EDEMA+), SKIN:Normal, NEURO:Normal, :Normal laboratory and microbiology Laboratory Tests 08/20/25 18:14 Test 08/20/25 18:14 Range/Units Serum Glucose 155 H 74-106 mg/dL Problem List/Assessment/Plan Problem List/Assessment/Plan #1 acute on chronic diastolic heart failure: was on lasix #2 cellulitis both legs with ?sepsis: iv ancef #3 morbid obesity #4 acute renal failure ?vasomotor nephropathy #5 thrombocytosis advance care planning: full code- time spent 19 mins Plan discussed with: Patient Date of Service: Aug 21, 2025 Billing Provider: KARLA JENKINS MD Common Visit Codes: [id number] INP/OBS CARE(HIGH) Secondary Visit Codes: [id number] CARE PLAN 30 MINUTES KARLA JENKINS MD Aug 21, 2025 10:33
--- NOTE | 2025-08-21 12:39 | ECG ---
[facility] Test Date: 2025-08-20 Test Time: 16:38:49 Pat Name: JALEEL ALFARO Department: Respiratoy Room: 0216T A Gender: F Android Programmer: ALFREDO : 1955 Requested By: JEFERSON WILSON Order Number: [id number] Reading MD: Nguyễn Cedeño Measurements Intervals [place] Rate: 102 P: 37 IN: 151 QRS: 131 QRSD: 102 T: 31 QT: 344 QTc: 449 Interpretive Statements Sinus tachycardia Right axis deviation Abnormal R-wave progression, late transition Borderline T abnormalities, anterior leads Electronically Signed On 08-21-2025 18:35:11 PDT by Nguyễn Cedeño Please click the below link to view image of tracing.
[2025-08-21] MEDS: ceFAZolin 1GM/50ML 50 ML IV ONE (12:53)
[2025-08-21] MEDS: ceFAZolin 1GM/50ML 50 ML IV SCH (13:02)
--- NOTE | 2025-08-21 13:52 | DVHPN2 ---
Progress Note - Dictate Date Seen: Aug 21, 2025 Medical Necessity Reason Pt with a Central, PICC or Fol: Yes The following are medically ne: Cheney Catheter Reason for cheney catheter: Strict I&O Subjective PT WELL KNOWN TO ME OBESITY PAH RIGHT SIDED HEART FAILURE WITH PRESERVED SYSTOLIC FUNCTION ANASARCA FELIX METABOLIC SYNDROME vital signs Vital Sign Date Time Temp Pulse Resp B/P (MAP) Pulse Ox O2 Delivery O2 Flow Rate FiO2 08/21/25 09:00 97.9 96 20 115/60 (78) 86 97.9 08/21/25 08:00 Nasal Cannula* 2 28 Total Intake and Output 08/20/25 08/20/25 08/21/25 15:00 23:00 07:00 Intake Total 650 ml 1000 ml Output Total 675 ml 450 ml Balance -25 ml 550 ml medications Current Medications Medications Dose Ordered Sig/Pavel Route Start Time Stop Time Status Last Admin Dose Admin Clopidogrel Bisulfate 75 mg DAILY PO 08/18/25 10:00 08/21/25 09:26 75 MG Atorvastatin Calcium 10 mg HS PO 08/17/25 22:00 08/20/25 21:03 10 MG Acetaminophen/ Hydrocodone Bitart 1 tab Q4HP PRN PO 08/17/25 19:30 Ondansetron HCl 4 mg Q4HP PRN IV 08/17/25 19:30 Acetaminophen 650 mg Q6HP PRN PO 08/17/25 19:30 Nitroglycerin 0.4 mg Q5MINP PRN SL 08/17/25 19:30 Morphine Sulfate 2 mg Q30M PRN IV 08/17/25 19:30 Metoprolol Succinate 25 mg DAILY PO 08/22/25 10:00 Cefazolin Sodium 50 ml @ 100 mls/hr Q8HR IV 08/21/25 14:00 08/21/25 13:02 100 MLS/HR Enoxaparin Sodium 60 mg BID SC 08/21/25 22:00 laboratory and microbiology Laboratory Tests 08/20/25 18:14 Test 08/20/25 18:14 Range/Units Serum Glucose 155 H 74-106 mg/dL Problem List OBESITY PAH RIGHT SIDED HEART FAILURE WITH PRESERVED SYSTOLIC FUNCTION ANASARCA FELIX METABOLIC SYNDROME Assessment/Plan LASIX DRIP ABG DAILY BMP FOR K+ MONITORING DC LASIX DRIP Plan discussed with: Patient Critical Care Time(min): 3 AUDIE SYLVESTER MD Aug 21, 2025 13:52
--- NOTE | 2025-08-21 13:58 | DVHPN2 ---
Progress Note - Dictate Date Seen: Aug 20, 2025 Medical Necessity Reason Pt with a Central, PICC or Fol: Yes The following are medically ne: Cheney Catheter Reason for cheney catheter: Strict I&O Subjective PT WELL KNOWN TO ME OBESITY PAH RIGHT SIDED HEART FAILURE WITH PRESERVED SYSTOLIC FUNCTION ANASARCA FELIX METABOLIC SYNDROME vital signs Vital Sign Date Time Temp Pulse Resp B/P (MAP) Pulse Ox O2 Delivery O2 Flow Rate FiO2 08/21/25 09:00 97.9 96 20 115/60 (78) 86 97.9 08/21/25 08:00 Nasal Cannula* 2 28 Total Intake and Output 08/20/25 08/20/25 08/21/25 15:00 23:00 07:00 Intake Total 650 ml 1000 ml Output Total 675 ml 450 ml Balance -25 ml 550 ml medications Current Medications Medications Dose Ordered Sig/Pavel Route Start Time Stop Time Status Last Admin Dose Admin Clopidogrel Bisulfate 75 mg DAILY PO 08/18/25 10:00 08/21/25 09:26 75 MG Atorvastatin Calcium 10 mg HS PO 08/17/25 22:00 08/20/25 21:03 10 MG Acetaminophen/ Hydrocodone Bitart 1 tab Q4HP PRN PO 08/17/25 19:30 Ondansetron HCl 4 mg Q4HP PRN IV 08/17/25 19:30 Acetaminophen 650 mg Q6HP PRN PO 08/17/25 19:30 Nitroglycerin 0.4 mg Q5MINP PRN SL 08/17/25 19:30 Morphine Sulfate 2 mg Q30M PRN IV 08/17/25 19:30 Metoprolol Succinate 25 mg DAILY PO 08/22/25 10:00 Cefazolin Sodium 50 ml @ 100 mls/hr Q8HR IV 08/21/25 14:00 08/21/25 13:02 100 MLS/HR Enoxaparin Sodium 60 mg BID SC 08/21/25 22:00 laboratory and microbiology Laboratory Tests 08/20/25 18:14 Test 08/20/25 18:14 Range/Units Serum Glucose 155 H 74-106 mg/dL Problem List OBESITY PAH RIGHT SIDED HEART FAILURE WITH PRESERVED SYSTOLIC FUNCTION ANASARCA FELIX METABOLIC SYNDROME THROMBOCYTOSIS HYPOVENTILATION SYNDROME Assessment/Plan LASIX DRIP ABG DAILY BMP FOR K+ MONITORING DC LASIX DRIP ABG R/O HYPOVENTILATION SYNDROME Plan discussed with: Patient AUDIE SYLVESTER MD Aug 21, 2025 13:58
[2025-08-21 15:35] LABS: Base Excess 9.8 mmol/L (-2.0-3.0)
[2025-08-21] MEDS: ENOXAPARIN SOD 60 MG/0.6 ML SYRINGE SC SCH (21:17)
[2025-08-22] VITALS (10 sets, daily range): BP systolic 94–137; BP diastolic 50–71; PULSE 65–94; RESP 14–19; TEMP 97.1–98.4; O2SAT 92–100
[2025-08-22] MEDS: ACETAMINOPHEN 325 MG TAB PO PRN (05:36)
[2025-08-22 07:04] LABS: Anion Gap 8 (5-15)
[2025-08-22 07:05] LABS: Calcium 8.9 mg/dL (8.7-10.4)
[2025-08-22 07:10] LABS: BUN/Creatinine Ratio 24.2 (10.0-20.0)
[2025-08-22 07:13] LABS: Blood Urea Nitrogen 29 mg/dL (9-23); Carbon Dioxide 35 mmol/L (20-31); Chloride 90 mmol/L (98-107); Glucose 122 mg/dL (74-106); INR 1.06 (0.9-1.15); Partial Thromboplastin Time 28.9 SEC (24.5-34.5); Potassium 3.4 mmol/L (3.5-5.1); Prothrombin Time 11.2 sec (9.3-11.8); Sodium 133 mmol/L (136-145)
[2025-08-22 07:17] LABS: Hemoglobin 12.3 g/dL (12.2-16.2); Nucleated Red Blood Cells % 0.0 %
[2025-08-22 07:27] LABS: Hematocrit 36.3 % (36.0-46.0); Mean Corpuscular Hemoglobin 26.7 pg (28.0-32.0); Mean Corpuscular Volume 78.9 fL (80.0-100.0)
[2025-08-22] MEDS: METOPROLOL SUCCINATE XL 50 MG TAB PO SCH (09:09)
--- NOTE | 2025-08-22 09:56 | DVHPN2 ---
Progress Note Date Seen: Aug 22, 2025 Medical Necessity Reason Pt with a Central, PICC or Fol: Yes The following are medically ne: Cheney Catheter Reason for cheney catheter: Strict I&O Subjective Patient reports: No new complaints Review of Systems: HEENT:Normal, CVS:Normal, RESPIRATORY:Normal, GI:Normal, :Normal, MSK:Normal, NEURO:Normal Objective vital signs Vital Sign Date Time Temp Pulse Resp B/P (MAP) Pulse Ox O2 Delivery O2 Flow Rate FiO2 08/22/25 09:29 97.3 84 16 137/71 (93) 100 97.3 08/21/25 20:00 Nasal Cannula* 2 28 Total Intake and Output 08/21/25 08/21/25 08/22/25 15:00 23:00 07:00 Intake Total 50 ml 1100 ml 890 ml Output Total 525 ml 1300 ml Balance 50 ml 575 ml -410 ml medications Current Medications Medications Dose Ordered Sig/Pavel Route Start Time Stop Time Status Last Admin Dose Admin Clopidogrel Bisulfate 75 mg DAILY PO 08/18/25 10:00 08/22/25 09:09 75 MG Atorvastatin Calcium 10 mg HS PO 08/17/25 22:00 08/21/25 21:16 10 MG Acetaminophen/ Hydrocodone Bitart 1 tab Q4HP PRN PO 08/17/25 19:30 Ondansetron HCl 4 mg Q4HP PRN IV 08/17/25 19:30 Acetaminophen 650 mg Q6HP PRN PO 08/17/25 19:30 08/22/25 05:36 650 MG Nitroglycerin 0.4 mg Q5MINP PRN SL 08/17/25 19:30 Morphine Sulfate 2 mg Q30M PRN IV 08/17/25 19:30 Metoprolol Succinate 25 mg DAILY PO 08/22/25 10:00 08/22/25 09:09 25 MG Cefazolin Sodium 50 ml @ 100 mls/hr Q8HR IV 08/21/25 14:00 08/22/25 05:26 100 MLS/HR Enoxaparin Sodium 60 mg BID SC 08/21/25 22:00 08/22/25 09:09 60 MG Examination: GENERAL:Normal, HEENT:Normal, NECK:Normal, LUNGS:Normal, CVS:Normal, ABDOMEN:Normal, MSK:Normal, SKIN:Normal, NEURO:Normal, :Normal laboratory and microbiology Laboratory Tests 08/22/25 05:58 Test 08/22/25 05:58 Range/Units Serum Glucose 122 H 74-106 mg/dL Problem List/Assessment/Plan Problem List/Assessment/Plan #1 acute on chronic diastolic heart failure: was on lasix #2 cellulitis both legs with ?sepsis: iv ancef #3 morbid obesity #4 acute renal failure ?vasomotor nephropathy #5 thrombocytosis advance care planning: full code- time spent 19 mins Plan discussed with: Patient My Orders My Orders Orders - KARLA JENKINS MD Procedure Category Date Status Time Metoprolol Xl PHA 08/22/25 In Process Succinate (Toprol Xl) 10:00 Cefazolin 1gm/50ml PHA 08/21/25 In Process (Ancef) 14:00 Pt Request For Service PT 08/21/25 Logged 10:34 Enoxaparin Sodium PHA 08/22/25 Verified (Lovenox) 10:00 Date of Service: Aug 22, 2025 Billing Provider: KARLA JENKINS MD Common Visit Codes: [id number] INP/OBS CARE(HIGH) KARLA JENKINS MD Aug 22, 2025 09:56
[2025-08-22] MEDS: ENOXAPARIN SOD 40 MG/0.4 ML SYRINGE SC SCH (10:00)
--- NOTE | 2025-08-22 12:53 | DVHPN2 ---
Progress Note - Dictate Date Seen: Aug 22, 2025 Medical Necessity Reason Pt with a Central, PICC or Fol: Yes The following are medically ne: Cheney Catheter Reason for cheney catheter: Strict I&O Subjective PT WELL KNOWN TO ME OBESITY PAH RIGHT SIDED HEART FAILURE WITH PRESERVED SYSTOLIC FUNCTION ANASARCA FELIX METABOLIC SYNDROME vital signs Vital Sign Date Time Temp Pulse Resp B/P (MAP) Pulse Ox O2 Delivery O2 Flow Rate FiO2 08/22/25 09:29 97.3 84 16 137/71 (93) 100 97.3 08/22/25 08:15 Nasal Cannula* 2 28 Total Intake and Output 08/21/25 08/21/25 08/22/25 15:00 23:00 07:00 Intake Total 50 ml 1100 ml 890 ml Output Total 525 ml 1300 ml Balance 50 ml 575 ml -410 ml medications Current Medications Medications Dose Ordered Sig/Pavel Route Start Time Stop Time Status Last Admin Dose Admin Clopidogrel Bisulfate 75 mg DAILY PO 08/18/25 10:00 08/22/25 09:09 75 MG Atorvastatin Calcium 10 mg HS PO 08/17/25 22:00 08/21/25 21:16 10 MG Acetaminophen/ Hydrocodone Bitart 1 tab Q4HP PRN PO 08/17/25 19:30 Ondansetron HCl 4 mg Q4HP PRN IV 08/17/25 19:30 Acetaminophen 650 mg Q6HP PRN PO 08/17/25 19:30 08/22/25 05:36 650 MG Nitroglycerin 0.4 mg Q5MINP PRN SL 08/17/25 19:30 Morphine Sulfate 2 mg Q30M PRN IV 08/17/25 19:30 Metoprolol Succinate 25 mg DAILY PO 08/22/25 10:00 08/22/25 09:09 25 MG Cefazolin Sodium 50 ml @ 100 mls/hr Q8HR IV 08/21/25 14:00 08/22/25 05:26 100 MLS/HR Enoxaparin Sodium 40 mg DAILY SC 08/22/25 10:00 laboratory and microbiology Laboratory Tests 08/22/25 05:58 Test 08/22/25 05:58 Range/Units Serum Glucose 122 H 74-106 mg/dL Problem List OBESITY PAH RIGHT SIDED HEART FAILURE WITH PRESERVED SYSTOLIC FUNCTION 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
[2025-08-22] MEDS: POTASSIUM CHL 20 Meq TABLET PO ONE (12:57)
[2025-08-22] MEDS: acetaZOLAMIDE SODIUM 500 MG VL IV ONE (16:16)
[2025-08-23] VITALS (8 sets, daily range): BP systolic 101–133; BP diastolic 51–73; PULSE 60–87; RESP 17–18; TEMP 97.1–98.6; O2SAT 93–96
[2025-08-23 07:20] LABS: Hemoglobin 12.2 g/dL (12.2-16.2); Nucleated Red Blood Cells % 0.0 %
[2025-08-23 07:22] LABS: Hematocrit 36.6 % (36.0-46.0); Mean Corpuscular Hemoglobin 26.9 pg (28.0-32.0); Mean Corpuscular Volume 80.5 fL (80.0-100.0)
[2025-08-23 07:37] LABS: Alanine Aminotransferase 10 U/L (7-40); Albumin 3.4 g/dL (3.2-4.8); Alkaline Phosphatase 106 U/L (46-116); Anion Gap 10 (5-15); BUN/Creatinine Ratio 18.6 (10.0-20.0); Calcium 9.0 mg/dL (8.7-10.4); Magnesium 1.9 mg/dL (1.6-2.6); Total Protein 6.1 g/dL (5.7-8.2)
[2025-08-23 07:46] LABS: Bilirubin, Total 1.5 mg/dL (0.2-1.0); Blood Urea Nitrogen 24 mg/dL (9-23); Carbon Dioxide 32 mmol/L (20-31); Chloride 91 mmol/L (98-107); Glucose 113 mg/dL (74-106); Potassium 3.3 mmol/L (3.5-5.1); Sodium 133 mmol/L (136-145)
--- NOTE | 2025-08-23 09:59 | DVHPN2 ---
Progress Note Date Seen: Aug 23, 2025 Medical Necessity Reason Pt with a Central, PICC or Fol: Yes The following are medically ne: Cheney Catheter Reason for cheney catheter: Strict I&O Subjective Patient reports: No new complaints Review of Systems: HEENT:Normal, CVS:Normal, RESPIRATORY:Normal, GI:Normal, :Normal, MSK:Normal, NEURO:Normal Objective vital signs Vital Sign Date Time Temp Pulse Resp B/P (MAP) Pulse Ox O2 Delivery O2 Flow Rate FiO2 08/23/25 09:22 78 106/58 08/23/25 08:55 98.0 17 95 98.0 08/23/25 08:01 Room Air* 0 21 Total Intake and Output 08/22/25 08/22/25 08/23/25 15:00 23:00 07:00 Intake Total 50 ml 850 ml Output Total 300 ml 975 ml Balance -250 ml -125 ml medications Current Medications Medications Dose Ordered Sig/Pavel Route Start Time Stop Time Status Last Admin Dose Admin Clopidogrel Bisulfate 75 mg DAILY PO 08/18/25 10:00 08/23/25 09:20 75 MG Atorvastatin Calcium 10 mg HS PO 08/17/25 22:00 08/22/25 21:42 10 MG Acetaminophen/ Hydrocodone Bitart 1 tab Q4HP PRN PO 08/17/25 19:30 Ondansetron HCl 4 mg Q4HP PRN IV 08/17/25 19:30 Acetaminophen 650 mg Q6HP PRN PO 08/17/25 19:30 08/23/25 08:23 650 MG Nitroglycerin 0.4 mg Q5MINP PRN SL 08/17/25 19:30 Morphine Sulfate 2 mg Q30M PRN IV 08/17/25 19:30 Metoprolol Succinate 25 mg DAILY PO 08/22/25 10:00 08/23/25 09:22 25 MG Cefazolin Sodium 50 ml @ 100 mls/hr Q8HR IV 08/21/25 14:00 08/23/25 05:14 100 MLS/HR Enoxaparin Sodium 40 mg DAILY SC 08/22/25 10:00 08/23/25 09:21 40 MG Examination: GENERAL:Normal, HEENT:Normal, NECK:Normal, LUNGS:Normal, CVS:Normal, ABDOMEN:Normal, MSK:Normal, SKIN:Normal, NEURO:Normal, :Normal laboratory and microbiology Laboratory Tests 08/23/25 05:50 Test 08/23/25 05:50 Range/Units Serum Glucose 113 H 74-106 mg/dL Problem List/Assessment/Plan Problem List/Assessment/Plan #1 acute on chronic diastolic heart failure: was on lasix #2 cellulitis both legs with ?sepsis: iv ancef #3 morbid obesity #4 acute renal failure ?vasomotor nephropathy #5 thrombocytosis: outpt hem consult advance care planning: full code- time spent 19 mins Plan discussed with: Patient My Orders My Orders Orders - KARLA JENKINS MD Procedure Category Date Status Time Potassium Er Tablet PHA 08/23/25 Verified (Klor-Con Tablet) 10:00 * Adoption Social Worker CONS 08/23/25 Verified Consult Dietary Evaluation Review Comments: Nutrition Recommendation: 1) Refer Exterior Work Helper for weight management 2) Monitor PO intake, lab values, weight trend, and I/O Expected Outcomes/Goals: To meet >75% estimated needs Fu 3-5 days Date of Service: Aug 23, 2025 Billing Provider: KARLA JENKINS MD Common Visit Codes: [id number] INP/OBS CARE(HIGH) KARLA JENKINS MD Aug 23, 2025 09:59
[2025-08-23] MEDS: POTASSIUM CHL 20 Meq TABLET PO ONE (12:02)
--- NOTE | 2025-08-23 13:27 | DVHPN2 ---
Progress Note - Dictate Date Seen: Aug 23, 2025 Medical Necessity Reason Pt with a Central, PICC or Fol: Yes The following are medically ne: Cheney Catheter Reason for cheney catheter: Strict I&O Subjective PT WELL KNOWN TO ME OBESITY PAH RIGHT SIDED HEART FAILURE WITH PRESERVED SYSTOLIC FUNCTION ANASARCA FELIX METABOLIC SYNDROME vital signs Vital Sign Date Time Temp Pulse Resp B/P (MAP) Pulse Ox O2 Delivery O2 Flow Rate FiO2 08/23/25 09:22 78 106/58 08/23/25 08:55 98.0 17 95 98.0 08/23/25 08:01 Room Air* 0 21 Total Intake and Output 08/22/25 08/22/25 08/23/25 15:00 23:00 07:00 Intake Total 50 ml 850 ml Output Total 300 ml 975 ml Balance -250 ml -125 ml medications Current Medications Medications Dose Ordered Sig/Pavel Route Start Time Stop Time Status Last Admin Dose Admin Clopidogrel Bisulfate 75 mg DAILY PO 08/18/25 10:00 08/23/25 09:20 75 MG Atorvastatin Calcium 10 mg HS PO 08/17/25 22:00 08/22/25 21:42 10 MG Acetaminophen/ Hydrocodone Bitart 1 tab Q4HP PRN PO 08/17/25 19:30 Ondansetron HCl 4 mg Q4HP PRN IV 08/17/25 19:30 Acetaminophen 650 mg Q6HP PRN PO 08/17/25 19:30 08/23/25 08:23 650 MG Nitroglycerin 0.4 mg Q5MINP PRN SL 08/17/25 19:30 Morphine Sulfate 2 mg Q30M PRN IV 08/17/25 19:30 Cefazolin Sodium 50 ml @ 100 mls/hr Q8HR IV 08/21/25 14:00 08/23/25 05:14 100 MLS/HR Enoxaparin Sodium 40 mg DAILY SC 08/22/25 10:00 08/23/25 09:21 40 MG laboratory and microbiology Laboratory Tests 08/23/25 05:50 Test 08/23/25 05:50 Range/Units Serum Glucose 113 H 74-106 mg/dL Problem List OBESITY PAH RIGHT SIDED HEART FAILURE WITH PRESERVED SYSTOLIC FUNCTION ANASARCA 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
[2025-08-23 13:54] LABS: Nucleated Red Blood Cells % 0.0 %
[2025-08-23 13:56] LABS: Hematocrit 38.6 % (36.0-46.0); Hemoglobin 12.6 g/dL (12.2-16.2); Mean Corpuscular Hemoglobin 26.8 pg (28.0-32.0); Mean Corpuscular Volume 82.5 fL (80.0-100.0)
[2025-08-23] MEDS ORDERED: cefTAZidime 2GM/NS 50 ML IV SCH (14:00)
[2025-08-23] MEDS: cefTAZidime 2GM/NS 50 ML IV SCH (18:21)
[2025-08-24] VITALS (9 sets, daily range): BP systolic 111–135; BP diastolic 62–71; PULSE 71–104; RESP 16–19; TEMP 97–98.6; O2SAT 92–98
[2025-08-24 07:05] LABS: Alanine Aminotransferase 18 U/L (7-40); Albumin 3.5 g/dL (3.2-4.8); Alkaline Phosphatase 106 U/L (46-116); Anion Gap 11 (5-15); BUN/Creatinine Ratio 21.4 (10.0-20.0); Calcium 9.0 mg/dL (8.7-10.4); Carbon Dioxide 29 mmol/L (20-31); Total Protein 6.2 g/dL (5.7-8.2)
[2025-08-24 07:13] LABS: Bilirubin, Total 1.2 mg/dL (0.2-1.0); Blood Urea Nitrogen 24 mg/dL (9-23); Chloride 93 mmol/L (98-107); Glucose 109 mg/dL (74-106); Potassium 3.4 mmol/L (3.5-5.1); Sodium 133 mmol/L (136-145)
--- NOTE | 2025-08-24 09:27 | DVHPN2 ---
Progress Note Date Seen: Aug 24, 2025 Medical Necessity Reason Pt with a Central, PICC or Fol: Yes The following are medically ne: Cheney Catheter Reason for cheney catheter: Strict I&O Subjective Patient reports: No new complaints Review of Systems: HEENT:Normal, CVS:Normal, RESPIRATORY:Normal, GI:Normal, :Normal, MSK:Normal, NEURO:Normal Objective vital signs Vital Sign Date Time Temp Pulse Resp B/P (MAP) Pulse Ox O2 Delivery O2 Flow Rate FiO2 08/24/25 07:55 73 18 98 Room Air* 0 21 08/24/25 05:00 97.1 121/64 (83) 97.1 Total Intake and Output 08/23/25 08/23/25 08/24/25 15:00 23:00 07:00 Intake Total 850 ml 870 ml Output Total 2125 ml Balance 850 ml -1255 ml medications Current Medications Medications Dose Ordered Sig/Pavel Route Start Time Stop Time Status Last Admin Dose Admin Clopidogrel Bisulfate 75 mg DAILY PO 08/18/25 10:00 08/23/25 09:20 75 MG Atorvastatin Calcium 10 mg HS PO 08/17/25 22:00 08/23/25 21:25 10 MG Acetaminophen/ Hydrocodone Bitart 1 tab Q4HP PRN PO 08/17/25 19:30 Ondansetron HCl 4 mg Q4HP PRN IV 08/17/25 19:30 Acetaminophen 650 mg Q6HP PRN PO 08/17/25 19:30 08/23/25 23:50 650 MG Nitroglycerin 0.4 mg Q5MINP PRN SL 08/17/25 19:30 Morphine Sulfate 2 mg Q30M PRN IV 08/17/25 19:30 Enoxaparin Sodium 40 mg DAILY SC 08/22/25 10:00 08/23/25 09:21 40 MG Acetazolamide Sodium 500 mg DAILY IV 08/24/25 10:00 Vancomycin HCl 250 ml @ 250 mls/hr DAILY IV 08/24/25 10:00 UNV Ceftazidime/ Dextrose 50 ml @ 12.5 mls/hr Q8H IV 08/23/25 18:00 08/24/25 01:57 12.5 MLS/HR Examination: GENERAL:Normal, HEENT:Normal, NECK:Normal, LUNGS:Normal, CVS:Normal, ABDOMEN:Normal, MSK:Normal, MSK:Abnormal (edema+), SKIN:Normal, NEURO:Normal, :Normal laboratory and microbiology Laboratory Tests 08/24/25 05:00 08/23/25 13:40 Test 08/24/25 05:00 Range/Units Serum Glucose 109 H 74-106 mg/dL Problem List/Assessment/Plan Problem List/Assessment/Plan #1 acute on chronic diastolic heart failure: was on lasix #2 cellulitis both legs with ?sepsis: iv ancef #3 morbid obesity #4 acute renal failure ?vasomotor nephropathy #5 thrombocytosis: outpt hem consult advance care planning: full code- time spent 19 mins Plan discussed with: Patient My Orders My Orders Orders - KARLA JENKINS MD Procedure Category Date Status Time * Traffic Police Officer CONS 08/23/25 Transmitted Consult Dietary Evaluation Review Comments: Nutrition Recommendation: 1) Refer Granite Polisher for weight management 2) Monitor PO intake, lab values, weight trend, and I/O Expected Outcomes/Goals: To meet >75% estimated needs Fu 3-5 days Date of Service: Aug 24, 2025 Billing Provider: KARLA JENKINS MD Common Visit Codes: [id number] INP/OBS CARE(HIGH) KARLA JENKINS MD Aug 24, 2025 09:27
[2025-08-24] MEDS: acetaZOLAMIDE SODIUM 500 MG VL IV SCH (09:32)
[2025-08-24] MEDS ORDERED: VANCOMYCIN 1GM/250ML KIT 250 ML IV SCH (10:00)
--- NOTE | 2025-08-24 10:59 | DVHPN2 ---
Progress Note - Dictate Date Seen: Aug 24, 2025 Medical Necessity Reason Pt with a Central, PICC or Fol: Yes The following are medically ne: Cheney Catheter Reason for cheney catheter: Strict I&O Subjective PT WELL KNOWN TO ME OBESITY PAH RIGHT SIDED HEART FAILURE WITH PRESERVED SYSTOLIC FUNCTION ANASARCA FELIX METABOLIC SYNDROME vital signs Vital Sign Date Time Temp Pulse Resp B/P (MAP) Pulse Ox O2 Delivery O2 Flow Rate FiO2 08/24/25 09:32 135/109 08/24/25 09:00 97.9 73 18 98 97.9 08/24/25 07:55 Room Air* 0 21 Total Intake and Output 08/23/25 08/23/25 08/24/25 15:00 23:00 07:00 Intake Total 850 ml 870 ml Output Total 2125 ml Balance 850 ml -1255 ml medications Current Medications Medications Dose Ordered Sig/Pavel Route Start Time Stop Time Status Last Admin Dose Admin Clopidogrel Bisulfate 75 mg DAILY PO 08/18/25 10:00 08/24/25 09:32 75 MG Atorvastatin Calcium 10 mg HS PO 08/17/25 22:00 08/23/25 21:25 10 MG Acetaminophen/ Hydrocodone Bitart 1 tab Q4HP PRN PO 08/17/25 19:30 Ondansetron HCl 4 mg Q4HP PRN IV 08/17/25 19:30 Acetaminophen 650 mg Q6HP PRN PO 08/17/25 19:30 08/23/25 23:50 650 MG Nitroglycerin 0.4 mg Q5MINP PRN SL 08/17/25 19:30 Morphine Sulfate 2 mg Q30M PRN IV 08/17/25 19:30 Enoxaparin Sodium 40 mg DAILY SC 08/22/25 10:00 08/24/25 09:31 40 MG Acetazolamide Sodium 500 mg DAILY IV 08/24/25 10:00 08/24/25 09:32 500 MG Vancomycin HCl 0 ml @ 0 mls/hr UD IV 08/24/25 11:00 UNV Piperacillin Sod/ Tazobactam Sod 100 ml @ 25 mls/hr Q8HR IV 08/24/25 14:00 UNV laboratory and microbiology Laboratory Tests 08/24/25 05:00 08/23/25 13:40 Test 08/24/25 05:00 Range/Units Serum Glucose 109 H 74-106 mg/dL Problem List OBESITY PAH RIGHT SIDED HEART FAILURE WITH PRESERVED SYSTOLIC FUNCTION ANASARCA 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
[2025-08-24] MEDS ORDERED: VANCOMYCIN PER PHARMACY 0 MG IV SCH (11:00)
[2025-08-24] MEDS: POTASSIUM CHL 20 Meq TABLET PO ONE (12:42)
[2025-08-24] MEDS: VANCOMYCIN 1GM/250ML KIT 250 ML IV ONE (13:43)
[2025-08-24] MEDS ORDERED: PIPERACILLIN-TAZOB 3.375GM 100 ML IV SCH (14:00)
[2025-08-24] MEDS: PIPERACILLIN-TAZOB 3.375GM 100 ML IV ONE (15:54)
[2025-08-24] MEDS: PIPERACILLIN-TAZOB 3.375GM 100 ML IV SCH (22:18)
[2025-08-25] VITALS (7 sets, daily range): BP systolic 104–135; BP diastolic 54–75; PULSE 71–96; RESP 12–19; TEMP 98–98.7; O2SAT 93–95
[2025-08-25 06:29] LABS: Potassium 3.5 mmol/L (3.5-5.1)
[2025-08-25 06:30] LABS: Anion Gap 9 (5-15); Carbon Dioxide 26 mmol/L (20-31)
[2025-08-25 06:31] LABS: Calcium 9.0 mg/dL (8.7-10.4); Chloride 97 mmol/L (98-107); Sodium 132 mmol/L (136-145)
[2025-08-25 06:36] LABS: BUN/Creatinine Ratio 13.2 (10.0-20.0); Blood Urea Nitrogen 15 mg/dL (9-23)
[2025-08-25 06:37] LABS: Hematocrit 37.6 % (36.0-46.0); Hemoglobin 12.4 g/dL (12.2-16.2); Mean Corpuscular Hemoglobin 26.1 pg (28.0-32.0); Mean Corpuscular Volume 79.1 fL (80.0-100.0); Nucleated Red Blood Cells % 3.6 %
[2025-08-25 06:38] LABS: Glucose 122 mg/dL (74-106)
[2025-08-25] MEDS ORDERED: VANCOMYCIN 1GM/250ML KIT 250 ML IV SCH (12:00)
[2025-08-25] MEDS: VANCOMYCIN 750MG KIT 100 ML IV SCH (12:04)
--- NOTE | 2025-08-25 12:36 | DVHPN2 ---
Reviewed: Care Plan, H&P, Labs, Medications, Previous Orders, Radiology Changes from previous H/P or p: No Changes Objective Vitals Vital Signs Date Time Temp Pulse Resp B/P (MAP) Pulse Ox O2 Delivery O2 Flow Rate FiO2 08/25/25 12:06 135/66 08/25/25 09:09 98.0 71 17 95 98.0 08/24/25 20:00 Nasal Cannula* 2 28 Intake/Output Intake and Output 08/25/25 07:00 Intake Total 1474 ml Output Total 2675 ml Balance -1201 ml Intake Oral 1374 ml IV Total 100 ml Output Urine Total 2675 ml # Bowel Movements 1 Medications Current Medications Medications Dose Ordered Sig/Pavel Route Start Time Stop Time Status Last Admin Dose Admin Clopidogrel Bisulfate 75 mg DAILY PO 08/18/25 10:00 08/25/25 10:24 75 MG Atorvastatin Calcium 10 mg HS PO 08/17/25 22:00 08/24/25 21:00 10 MG Acetaminophen/ Hydrocodone Bitart 1 tab Q4HP PRN PO 08/17/25 19:30 Ondansetron HCl 4 mg Q4HP PRN IV 08/17/25 19:30 Acetaminophen 650 mg Q6HP PRN PO 08/17/25 19:30 08/24/25 20:58 650 MG Nitroglycerin 0.4 mg Q5MINP PRN SL 08/17/25 19:30 Morphine Sulfate 2 mg Q30M PRN IV 08/17/25 19:30 Enoxaparin Sodium 40 mg DAILY SC 08/22/25 10:00 08/25/25 10:24 40 MG Acetazolamide Sodium 500 mg DAILY IV 08/24/25 10:00 08/25/25 12:06 500 MG Vancomycin HCl 0 ml @ 0 mls/hr UD IV 08/24/25 11:00 Piperacillin Sod/ Tazobactam Sod 100 ml @ 25 mls/hr Q8H IV 08/24/25 23:00 08/25/25 06:14 25 MLS/HR Vancomycin HCl 100 ml @ 100 mls/hr Q12HR IV 08/25/25 10:00 08/25/25 12:04 100 MLS/HR Laboratory Results Laboratory Tests 08/25/25 05:22 Chemistry Test 08/25/25 05:22 Calcium Level 9.0 mg/dL (8.7-10.4) Urinalysis Test 08/17/25 13:08 Urine Color Light-yellow (Yellow) Urine Clarity Clear (Clear) Urine pH 6.0 (5.0-9.0) Urine Specific [place] 1.023 (1.001-1.035) Urine Protein Negative (Negative) Urine Ketones Negative (Negative) Urine Blood Negative /uL (Negative) Urine Nitrite Negative (Negative) Urine Bilirubin Negative (Negative) Urine Urobilinogen Normal mg/dL (Negative) Urine Leukocyte Esterase Negative /uL (Negative) Urine RBC 2 /hpf (0 - 4) Urine Microscopic WBC 1 /HPF (0-5) Urine Squamous Epithelial Cells Few /hpf (<5) Urine Bacteria Few /hpf (None Seen) H Urine Glucose Normal mg/dL (Normal) Labs and/or images reviewed: Labs reviewed by me, Image(s) reviewed by me Assessment/Plan Assessment/Plan Covering for Dr. Nascimento #1 acute on chronic diastolic heart failure: was on lasix #2 cellulitis both legs with ?sepsis: Zosyn and vancomycin #3 morbid obesity #4 acute renal failure ?vasomotor nephropathy #5 thrombocytosis: outpt hem consult Plan discussed with: Patient Date of Service: Aug 25, 2025 Billing Provider: AGUS LEWIS MD Common Visit Codes: [id number] INP/OBS CARE(HIGH) AGUS LEWIS MD Aug 25, 2025 12:36
--- NOTE | 2025-08-25 14:50 | DVHPN2 ---
Progress Note - Dictate Date Seen: Aug 25, 2025 Medical Necessity Reason Pt with a Central, PICC or Fol: Yes The following are medically ne: Cheney Catheter Reason for cheney catheter: Strict I&O Subjective PT WELL KNOWN TO ME OBESITY PAH RIGHT SIDED HEART FAILURE WITH PRESERVED SYSTOLIC FUNCTION ANASARCA FELIX METABOLIC SYNDROME vital signs Vital Sign Date Time Temp Pulse Resp B/P (MAP) Pulse Ox O2 Delivery O2 Flow Rate FiO2 08/25/25 13:00 98.5 84 14 135/66 (89) 93 98.5 08/25/25 08:30 Room Air* 0 21 Total Intake and Output 08/24/25 08/24/25 08/25/25 15:00 23:00 07:00 Intake Total 899 ml 575 ml Output Total 1600 ml 1075 ml Balance -701 ml -500 ml medications Current Medications Medications Dose Ordered Sig/Pavel Route Start Time Stop Time Status Last Admin Dose Admin Clopidogrel Bisulfate 75 mg DAILY PO 08/18/25 10:00 08/25/25 10:24 75 MG Atorvastatin Calcium 10 mg HS PO 08/17/25 22:00 08/24/25 21:00 10 MG Acetaminophen/ Hydrocodone Bitart 1 tab Q4HP PRN PO 08/17/25 19:30 Ondansetron HCl 4 mg Q4HP PRN IV 08/17/25 19:30 Acetaminophen 650 mg Q6HP PRN PO 08/17/25 19:30 08/24/25 20:58 650 MG Nitroglycerin 0.4 mg Q5MINP PRN SL 08/17/25 19:30 Morphine Sulfate 2 mg Q30M PRN IV 08/17/25 19:30 Enoxaparin Sodium 40 mg DAILY SC 08/22/25 10:00 08/25/25 10:24 40 MG Acetazolamide Sodium 500 mg DAILY IV 08/24/25 10:00 08/25/25 12:06 500 MG Vancomycin HCl 0 ml @ 0 mls/hr UD IV 08/24/25 11:00 Piperacillin Sod/ Tazobactam Sod 100 ml @ 25 mls/hr Q8H IV 08/24/25 23:00 08/25/25 06:14 25 MLS/HR Vancomycin HCl 100 ml @ 100 mls/hr Q12HR IV 08/25/25 10:00 08/25/25 12:04 100 MLS/HR laboratory and microbiology Laboratory Tests 08/25/25 05:22 Test 08/25/25 05:22 Range/Units Serum Glucose 122 H 74-106 mg/dL Problem List OBESITY PAH RIGHT SIDED HEART FAILURE WITH PRESERVED SYSTOLIC FUNCTION ANASARCA FELIX METABOLIC SYNDROME THROMBOCYTOSIS HYPOVENTILATION SYNDROME Assessment/Plan LASIX DRIP ABG DAILY BMP FOR K+ MONITORING DC LASIX DRIP ABG R/O HYPOVENTILATION SYNDROME HYPERVENTILATING METABOLIC ALKALOSIS DIAMOX cellulitis of le still not improving change abx smell consistent with psedomonas Dietary Evaluation Review Comments: Nutrition Recommendation: 1) Refer Reaming Press Operator for weight management 2) Monitor PO intake, lab values, weight trend, and I/O Expected Outcomes/Goals: To meet >75% estimated needs Fu 3-5 days Plan discussed with: Patient AUDIE SYLVESTER MD Aug 25, 2025 14:50
[2025-08-26] VITALS (8 sets, daily range): BP systolic 117–137; BP diastolic 58–89; PULSE 71–99; RESP 16–19; TEMP 97.6–98.5; O2SAT 93–98
--- NOTE | 2025-08-26 10:14 | DVHPN2 ---
Reviewed: Care Plan, H&P, Labs, Medications, Previous Orders, Radiology Changes from previous H/P or p: No Changes Objective Vitals Vital Signs Date Time Temp Pulse Resp B/P (MAP) Pulse Ox O2 Delivery O2 Flow Rate FiO2 08/26/25 09:55 137/68 08/26/25 08:54 97.8 76 17 97 97.8 08/25/25 20:00 Room Air* 0 21 Intake/Output Intake and Output 08/26/25 07:00 Intake Total 1100 ml Output Total 2175 ml Balance -1075 ml Intake Oral 1100 ml Output Urine Total 2175 ml # Voids 1 Medications Current Medications Medications Dose Ordered Sig/Pavel Route Start Time Stop Time Status Last Admin Dose Admin Clopidogrel Bisulfate 75 mg DAILY PO 08/18/25 10:00 08/26/25 09:54 75 MG Atorvastatin Calcium 10 mg HS PO 08/17/25 22:00 08/25/25 20:59 10 MG Acetaminophen/ Hydrocodone Bitart 1 tab Q4HP PRN PO 08/17/25 19:30 Ondansetron HCl 4 mg Q4HP PRN IV 08/17/25 19:30 Acetaminophen 650 mg Q6HP PRN PO 08/17/25 19:30 08/25/25 18:21 650 MG Nitroglycerin 0.4 mg Q5MINP PRN SL 08/17/25 19:30 Morphine Sulfate 2 mg Q30M PRN IV 08/17/25 19:30 Enoxaparin Sodium 40 mg DAILY SC 08/22/25 10:00 08/26/25 09:54 40 MG Acetazolamide Sodium 500 mg DAILY IV 08/24/25 10:00 08/26/25 09:55 500 MG Vancomycin HCl 0 ml @ 0 mls/hr UD IV 08/24/25 11:00 Piperacillin Sod/ Tazobactam Sod 100 ml @ 25 mls/hr Q8H IV 08/24/25 23:00 08/26/25 05:17 25 MLS/HR Vancomycin HCl 100 ml @ 100 mls/hr Q12HR IV 08/25/25 10:00 08/26/25 09:56 100 MLS/HR Laboratory Results Laboratory Tests 08/25/25 05:22 08/26/25 05:00 Urinalysis Test 08/17/25 13:08 Urine Color Light-yellow (Yellow) Urine Clarity Clear (Clear) Urine pH 6.0 (5.0-9.0) Urine Specific [place] 1.023 (1.001-1.035) Urine Protein Negative (Negative) Urine Ketones Negative (Negative) Urine Blood Negative /uL (Negative) Urine Nitrite Negative (Negative) Urine Bilirubin Negative (Negative) Urine Urobilinogen Normal mg/dL (Negative) Urine Leukocyte Esterase Negative /uL (Negative) Urine RBC 2 /hpf (0 - 4) Urine Microscopic WBC 1 /HPF (0-5) Urine Squamous Epithelial Cells Few /hpf (<5) Urine Bacteria Few /hpf (None Seen) H Urine Glucose Normal mg/dL (Normal) Labs and/or images reviewed: Labs reviewed by me, Image(s) reviewed by me Assessment/Plan Assessment/Plan Covering for Dr. Nascimento #1 acute on chronic diastolic heart failure: was on lasix #2 cellulitis both legs with ?sepsis: Zosyn and vancomycin #3 morbid obesity #4 acute renal failure ?vasomotor nephropathy #5 thrombocytosis: outpt hem consult Continue current management Plan discussed with: Patient Date of Service: Aug 26, 2025 Billing Provider: AGUS LEWIS MD Common Visit Codes: [id number] INP/OBS CARE(HIGH) AGUS LEWIS MD Aug 26, 2025 10:14
[2025-08-26 11:02] LABS: Hemoglobin 12.3 g/dL (12.2-16.2); Mean Corpuscular Hemoglobin 27.0 pg (28.0-32.0)
[2025-08-26 11:04] LABS: Hematocrit 37.6 % (36.0-46.0); Mean Corpuscular Volume 82.2 fL (80.0-100.0); Nucleated Red Blood Cells % 0.1 %
[2025-08-26 11:07] LABS: Anion Gap 7 (5-15); Calcium 8.8 mg/dL (8.7-10.4); Carbon Dioxide 29 mmol/L (20-31)
[2025-08-26 11:12] LABS: BUN/Creatinine Ratio 12.2 (10.0-20.0); Blood Urea Nitrogen 14 mg/dL (9-23)
[2025-08-26 11:13] LABS: Chloride 96 mmol/L (98-107); Glucose 179 mg/dL (74-106); Potassium 3.2 mmol/L (3.5-5.1); Sodium 132 mmol/L (136-145)
[2025-08-26] MEDS: POTASSIUM EFFERVESENT TAB 25 MEQ PO ONE (15:40)
[2025-08-27] VITALS (8 sets, daily range): BP systolic 108–130; BP diastolic 61–70; PULSE 70–97; RESP 16–20; TEMP 97.7–98.4; O2SAT 93–100
--- NOTE | 2025-08-27 08:28 | DVHPN2 ---
Reviewed: Care Plan, H&P, Labs, Medications, Previous Orders, Radiology Changes from previous H/P or p: No Changes Objective Vitals Vital Signs Date Time Temp Pulse Resp B/P (MAP) Pulse Ox O2 Delivery O2 Flow Rate FiO2 08/27/25 05:00 98.0 82 18 122/67 (85) 95 98.0 08/26/25 20:00 Room Air* 0 21 Intake/Output Intake and Output 08/27/25 07:00 Intake Total 1490 ml Output Total 2100 ml Balance -610 ml Intake Oral 1290 ml IV Total 200 ml Output Urine Total 2100 ml Medications Current Medications Medications Dose Ordered Sig/Pvael Route Start Time Stop Time Status Last Admin Dose Admin Clopidogrel Bisulfate 75 mg DAILY PO 08/18/25 10:00 08/26/25 09:54 75 MG Atorvastatin Calcium 10 mg HS PO 08/17/25 22:00 08/26/25 21:06 10 MG Ondansetron HCl 4 mg Q4HP PRN IV 08/17/25 19:30 Acetaminophen 650 mg Q6HP PRN PO 08/17/25 19:30 08/25/25 18:21 650 MG Nitroglycerin 0.4 mg Q5MINP PRN SL 08/17/25 19:30 Enoxaparin Sodium 40 mg DAILY SC 08/22/25 10:00 08/26/25 09:54 40 MG Acetazolamide Sodium 500 mg DAILY IV 08/24/25 10:00 08/26/25 09:55 500 MG Vancomycin HCl 0 ml @ 0 mls/hr UD IV 08/24/25 11:00 Piperacillin Sod/ Tazobactam Sod 100 ml @ 25 mls/hr Q8H IV 08/24/25 23:00 08/27/25 05:08 25 MLS/HR Vancomycin HCl 100 ml @ 100 mls/hr Q12HR IV 08/25/25 10:00 08/26/25 21:01 100 MLS/HR Laboratory Results Laboratory Tests 08/26/25 10:36 Chemistry Test 08/26/25 10:36 Calcium Level 8.8 mg/dL (8.7-10.4) Urinalysis Test 08/17/25 13:08 Urine Color Light-yellow (Yellow) Urine Clarity Clear (Clear) Urine pH 6.0 (5.0-9.0) Urine Specific [place] 1.023 (1.001-1.035) Urine Protein Negative (Negative) Urine Ketones Negative (Negative) Urine Blood Negative /uL (Negative) Urine Nitrite Negative (Negative) Urine Bilirubin Negative (Negative) Urine Urobilinogen Normal mg/dL (Negative) Urine Leukocyte Esterase Negative /uL (Negative) Urine RBC 2 /hpf (0 - 4) Urine Microscopic WBC 1 /HPF (0-5) Urine Squamous Epithelial Cells Few /hpf (<5) Urine Bacteria Few /hpf (None Seen) H Urine Glucose Normal mg/dL (Normal) Labs and/or images reviewed: Labs reviewed by me, Image(s) reviewed by me Assessment/Plan Assessment/Plan Covering for Dr. Nascimento #1 acute on chronic diastolic heart failure: was on lasix #2 cellulitis both legs with ?sepsis: Zosyn and vancomycin #3 morbid obesity #4 acute renal failure versus vasomotor nephropathy improving #5 thrombocytosis: Outpatient hematology consult Continue current management Ordered CBC and CMP for Thursday Plan discussed with: Patient My Orders Orders - AGUS LEWIS MD Procedure Category Date Status Time Blood Culture JORGE 08/26/25 In Process 10:25 Date of Service: Aug 27, 2025 Billing Provider: AGUS LEWIS MD Common Visit Codes: [id number] INP/OBS CARE(HIGH) AGUS LEWIS MD Aug 27, 2025 08:28
[2025-08-27] MEDS ORDERED: HYDROcodone-ACET 5/325MG TAB PO PRN ×2 (15:45→22:15)
[2025-08-27] MEDS ORDERED: ONDANSETRON HCL 4 MG/2 ML VIAL IV PRN ×2 (15:45→22:15)
[2025-08-27] MEDS ORDERED: DEXTROSE (50%) 50ML SYRG IV PRN (15:45)
[2025-08-27] MEDS ORDERED: ACCU-CHEK COMFORT CURVE STRIP VI SCH (17:00)
[2025-08-27] MEDS ORDERED: InsuLIN REG 1unit/0.01ml Soln (100units/ml) SC SCH ×2 (17:00→22:00)
[2025-08-27] MEDS ORDERED: ACETAMINOPHEN 325 MG TAB PO PRN (22:15)
[2025-08-27] MEDS ORDERED: NITROGLYCERIN 0.4 MG SL TAB SL PRN (22:15)
[2025-08-27] MEDS: ATORVASTATIN 20 MG TAB PO SCH (22:50)
[2025-08-27] MEDS: PIPERACILLIN-TAZOB 3.375GM 100 ML IV SCH (22:50)
[2025-08-28 01:00] VITALS: BP 126/64; PULSE 83; RESP 18; TEMP 98.2; O2SAT 100
[2025-08-28 04:56] VITALS: BP 121/63; PULSE 85; RESP 18; TEMP 98.2; O2SAT 98
[2025-08-28 08:00] VITALS: PULSE 97; RESP 18
[2025-08-28 08:43] LABS: Hemoglobin 11.7 g/dL (12.2-16.2)
[2025-08-28] MEDS: acetaZOLAMIDE SODIUM 500 MG VL IV SCH (08:44)
[2025-08-28 08:45] LABS: Hematocrit 34.7 % (36.0-46.0); Mean Corpuscular Hemoglobin 27.3 pg (28.0-32.0); Mean Corpuscular Volume 80.5 fL (80.0-100.0); Nucleated Red Blood Cells % 0.1 %
[2025-08-28] MEDS: ENOXAPARIN SOD 40 MG/0.4 ML SYRINGE SC SCH (08:45)
[2025-08-28 09:00] VITALS: BP 108/62; PULSE 81; RESP 18; TEMP 97.9; O2SAT 95
[2025-08-28 09:04] LABS: Alanine Aminotransferase 19 U/L (7-40); Albumin 3.6 g/dL (3.2-4.8); Alkaline Phosphatase 103 U/L (46-116); Anion Gap 8 (5-15); BUN/Creatinine Ratio 13.0 (10.0-20.0); Bilirubin, Total 1.0 mg/dL (0.2-1.0); Blood Urea Nitrogen 14 mg/dL (9-23); Calcium 8.8 mg/dL (8.7-10.4); Carbon Dioxide 28 mmol/L (20-31); Chloride 99 mmol/L (98-107); Potassium 3.4 mmol/L (3.5-5.1); Sodium 135 mmol/L (136-145); Total Protein 6.4 g/dL (5.7-8.2)
[2025-08-28 09:05] LABS: Glucose 127 mg/dL (74-106)
[2025-08-28] MEDS: POTASSIUM CHL 20 Meq TABLET PO ONE (10:15)
--- NOTE | 2025-08-28 10:15 | DVHDS2 ---
Discharge Summary Date of Admission Aug 17, 2025 at 19:17 Date of Discharge: Aug 28, 2025 Labs/Diagnostic Data: Laboratory Results Test 08/28/25 08:29 08/26/25 21:41 08/25/25 05:22 08/23/25 05:50 White Blood Count 12.2 10^3/uL (4.4-10.8) Red Blood Count 4.31 10^6/uL (4.0-5.20) Hemoglobin 11.7 g/dL (12.2-16.2) Hematocrit 34.7 % (36.0-46.0) Mean Corpuscular Volume 80.5 fL (80.0-100.0) Mean Corpuscular Hemoglobin 27.3 pg (28.0-32.0) Mean Corpuscular Hemoglobin Concent 33.9 g/dL (32.0-36.0) Red Cell Distribution Width 15.0 % (11.8-14.3) Platelet Count 1222 10^3/uL (140-450) Mean Platelet Volume 6.2 fL (6.9-10.8) Neutrophils (%) (Auto) 81.9 % (37.0-80.0) Lymphocytes (%) (Auto) 8.8 % (10.0-50.0) Monocytes (%) (Auto) 4.4 % (0.0-12.0) Eosinophils (%) (Auto) 3.9 % (0.0-7.0) Basophils (%) (Auto) 1.0 % (0.0-2.0) Neutrophils # (Auto) 10.0 10 ^3/uL (1.6-8.6) Lymphocytes # (Auto) 1.1 10 ^3/uL (0.4-5.4) Monocytes # (Auto) 0.5 10 ^3/uL (0-1.3) Eosinophils # (Auto) 0.5 10 ^3/uL (0-0.8) Basophils # (Auto) 0.1 10 ^3/uL (0-0.2) Nucleated Red Blood Cells 0.1 % Platelet Estimate Markedly increased Sodium Level 135 mmol/L (136-145) Potassium Level 3.4 mmol/L (3.5-5.1) Chloride Level 99 mmol/L (98-107) Carbon Dioxide Level 28 mmol/L (20-31) Anion Gap 8 (5-15) Blood Urea Nitrogen 14 mg/dL (9-23) Creatinine 1.08 mg/dL (0.550-1.02) Glomerular Filtration Rate Calc 56 mL/min (>90) BUN/Creatinine Ratio 13.0 (10.0-20.0) Serum Glucose 127 mg/dL (74-106) Calcium Level 8.8 mg/dL (8.7-10.4) Total Bilirubin 1.0 mg/dL (0.2-1.0) Aspartate Amino Transferase (AST) 16 U/L (13-40) Alanine Aminotransferase (ALT) 19 U/L (7-40) Alkaline Phosphatase 103 U/L (46-116) Total Protein 6.4 g/dL (5.7-8.2) Albumin 3.6 g/dL (3.2-4.8) Random Vancomycin Level 11.3 ug/mL (5-10) Vancomycin Level Trough 32.1 ug/mL (5-10) Microcytosis Slight Magnesium Level 1.9 mg/dL (1.6-2.6) Test 08/22/25 05:58 08/21/25 15:24 08/21/25 06:08 08/20/25 17:00 Prothrombin Time 11.2 sec (9.3-11.8) Prothrombin Time INR 1.06 (0.9-1.15) Activated Partial Thromboplast Time 28.9 SEC (24.5-34.5) Blood Gas Specimen Type Arterial Blood Gas Sample Site Right radial Blood Gas Patient Temperature 37.0 Arterial Blood Date Drawn [id number] Arterial Blood pH 7.550 (7.350-7.450) Arterial Blood Partial Pressure CO2 38.4 mmHg (32.0-45.0) Arterial Blood Partial Pressure O2 63.3 mmHg (83.0-108.0) Arterial Blood HCO3 32.8 mmol/L (21.0-28.0) Arterial Blood Oxygen Saturation 93.5 % (94.0-98.0) Arterial Blood Base Excess 9.8 mmol/L (-2.0-3.0) Arterial Blood Oxyhemoglobin 92.0 % (94.0-98.0) Arterial Blood Carboxyhemoglobin 1.3 % (0.5-1.5) Arterial Blood Methemoglobin 0.3 % (0.0-1.5) Gonzales Test Yes Blood Gas Total Hemoglobin 13.50 g/dL (12.0-16.0) Blood Gas Modality Room air FiO2 % 21.0 B-Type Natriuretic Peptide 5.30 pg/mL (0-100) Influenza Type A Antigen Negative (Negative) Influenza Type B Antigen Negative (Negative) SARS-CoV-2 Antigen (Rapid) Negative (NEGATIVE) Test 08/20/25 16:46 08/17/25 13:08 08/17/25 11:45 08/17/25 10:58 POC Glucose 195 mg/dl (70-106) Urine Color Light-yellow (Yellow) Urine Clarity Clear (Clear) Urine pH 6.0 (5.0-9.0) Urine Specific [place] 1.023 (1.001-1.035) Urine Protein Negative (Negative) Urine Ketones Negative (Negative) Urine Blood Negative /uL (Negative) Urine Nitrite Negative (Negative) Urine Bilirubin Negative (Negative) Urine Urobilinogen Normal mg/dL (Negative) Urine Leukocyte Esterase Negative /uL (Negative) Urine RBC 2 /hpf (0 - 4) Urine Microscopic WBC 1 /HPF (0-5) Urine Squamous Epithelial Cells Few /hpf (<5) Urine Bacteria Few /hpf (None Seen) Urine Glucose Normal mg/dL (Normal) Troponin I High Sensitivity < 3 ng/L (</=34) Anisocytosis (manual) Slight Other Laboratory Tests 08/28/25 08:29 Brief Hx & Hospital Course: SEE DICTATED NOTE Condition at Discharge: Fair Final Diagnosis/Problems List CELLULITIS Discharge Disposition: Home Discharge Instruct/Medications Diet: Cardiac 2g Na,low cholest Activity: No Restrictions, As Tolerated Follow Up/Referral: FU WITH PCP/HEMATOLOGY Medications: RESUME HOME MEDS SCRIPT TO PHARMACY Scheduled Atorvastatin Calcium (Lipitor), 1 TAB PO HS, (Reported) Bumetanide (Bumetanide), 1 TAB PO DAILY, (Reported) Clopidogrel Bisulfate (Clopidogrel), 1 TAB PO DAILY, (Reported) Ibuprofen Micronized (Ibuprofen), 1 TAB PO TID, (Reported) Lisinopril (Lisinopril), 10 MG PO BID, (Reported) Metformin Hydrochloride (Metformin Hcl), 1 TAB PO DAILY, (Reported) Metoprolol Succinate (Metoprolol Succinate Er), 1 TAB PO DAILY, (Reported) Potassium Chloride (Potassium Chloride ER), 1 TAB PO DAILY, (Reported) Discharge Statement: "Patient was advised to return to the ER or call 911 if any headaches, dizziness, shortness of breath, chest pain, abdominal pain, bleeding, fevers, or worsening of medical condition. Patient was counseled about treatment plan, medications, possible side effects, patientverbalized understanding. All questions were answered to the best of my ability. This discharge took greater then 30 minutes in planning, reviewing documentation, counseling the patient, and discussing with other team members." ASSESSMENT ASSESSMENT Assessment CELLULITIS Date of Service: Aug 28, 2025 Billing Provider: KARLA JENKINS MD Common Visit Codes: 68240-ZHO/OBS DISCH DAY >30min KARLA JENKINS MD Aug 28, 2025 10:15
[2025-08-28] MEDS ORDERED: LEVO500T91 PO (10:16)
--- NOTE | 2025-08-28 10:51 | DVHDS ---
DATE OF DISCHARGE: 08/28/2025 HISTORY OF PRESENT ILLNESS: The patient is a 70-year-old lady who was admitted with a history of chest pressure and shortness of breath and a history of hypertension and congestive heart failure. HOSPITAL COURSE: The patient had chest x-ray that showed cardiomegaly with CHF. The patient was initially started on a diuretic trip by Dr. Lopez. Head CT showed no acute abnormality except for subluxation of the left mandibular condyle. The patient had blood cultures that were negative. Her white count was elevated with a thrombocytosis that appears to be there for a while. The patient's creatinine had increased to 1.8 that improved to 1.0 at the time of discharge. Her influenza and COVID tests were negative. The patient was noted to have cellulitis, for which she was given antibiotics. The patient will now be discharged home to resume her home medications as well as to be on Levaquin 500 mg daily for 7 days. She will follow up with Hematology as well as her primary care. The patient will have home physical therapy. FINAL DIAGNOSES: * [id number] diastolic heart failure. * Cellulitis of both legs with questionable sepsis. * Morbid obesity. * [id number] renal failure, questionable vasomotor nephropathy. * Thrombocytosis. Time spent in discharge planning and review of plan with the patient and nursing was 38 minutes. MD AMINA Gomez/BETTY TID: [id number] RECEIPT: [id number]
[2025-08-28 11:08] VITALS: BP 122/67; PULSE 78; RESP 18; TEMP 36.6; O2SAT 98
[2025-08-28] MEDS: VANCOMYCIN 750MG KIT 100 ML IV SCH (12:00)
--- NOTE | 2025-08-28 14:14 | DVHPN2 ---
Progress Note - Dictate Date Seen: Aug 28, 2025 Medical Necessity Reason Pt with a Central, PICC or Fol: Yes The following are medically ne: Cheney Catheter Reason for cheney catheter: Strict I&O Subjective PT WELL KNOWN TO ME OBESITY PAH RIGHT SIDED HEART FAILURE WITH PRESERVED SYSTOLIC FUNCTION ANASARCA FELIX METABOLIC SYNDROME vital signs Vital Sign Date Time Temp Pulse Resp B/P (MAP) Pulse Ox O2 Delivery O2 Flow Rate FiO2 08/28/25 11:08 36.6 78 18 98 08/28/25 09:00 108/62 (77) 08/28/25 08:00 Room Air* 0 21 Total Intake and Output 08/27/25 08/27/25 08/28/25 15:00 23:00 07:00 Intake Total 1400 ml 450 ml Output Total 1000 ml 1300 ml Balance 400 ml -850 ml medications Current Medications Medications Dose Ordered Sig/Pavel Route Start Time Stop Time Status Last Admin Dose Admin Clopidogrel Bisulfate 75 mg DAILY PO 08/18/25 10:00 08/28/25 08:44 75 MG Ondansetron HCl 4 mg Q4HP PRN IV 08/17/25 19:30 Cancel Vancomycin HCl 0 ml @ 0 mls/hr UD IV 08/24/25 11:00 Atorvastatin Calcium 10 mg HS PO 08/27/25 22:10 08/27/25 22:50 10 MG Piperacillin Sod/ Tazobactam Sod 100 ml @ 25 mls/hr Q8H IV 08/27/25 22:15 08/28/25 05:42 25 MLS/HR Acetaminophen 650 mg Q6HP PRN PO 08/27/25 22:15 Nitroglycerin 0.4 mg Q5MINP PRN SL 08/27/25 22:15 Enoxaparin Sodium 40 mg DAILY SC 08/28/25 10:00 08/28/25 08:45 40 MG Acetazolamide Sodium 500 mg DAILY IV 08/28/25 10:00 08/28/25 08:44 500 MG Acetaminophen/ Hydrocodone Bitart 1 tab Q6HPRN PRN PO 08/27/25 22:15 Ondansetron HCl 4 mg Q8HPRN PRN IV 08/27/25 22:15 Vancomycin HCl 100 ml @ 100 mls/hr Q16H IV 08/28/25 12:00 laboratory and microbiology Laboratory Tests 08/28/25 08:29 Test 9/29/25 08:29 Range/Units Serum Glucose 127 H 74-106 mg/dL Problem List OBESITY PAH RIGHT SIDED HEART FAILURE WITH PRESERVED SYSTOLIC FUNCTION ANASARCA FELIX METABOLIC SYNDROME THROMBOCYTOSIS HYPOVENTILATION SYNDROME Assessment/Plan LASIX DRIP ABG DAILY BMP FOR K+ MONITORING DC LASIX DRIP ABG R/O HYPOVENTILATION SYNDROME HYPERVENTILATING METABOLIC ALKALOSIS DIAMOX cellulitis of le still not improving change abx smell consistent with psedomonas DC HOME Dietary Evaluation Review Comments: Nutrition Recommendation: 1) Refer [employer] for weight management 2) Monitor PO intake, lab values, weight trend, and I/O Expected Outcomes/Goals: To meet >75% estimated needs Fu 3-5 days Plan discussed with: Patient AUDIE SYLVESTER MD Aug 28, 2025 14:14
== END 2025-08-28 14:00 | disposition home health service (06) | DRG 871 ==
LOC: ER 10:47 → OVERFLOW 19:17 → TELE-CENTR 08-18 16:45
PROVIDERS: ADMIT Internal Medicine; ATTEND Internal Medicine
DX: A41.9 Sepsis, unspecified organism (principal); I50.43 Acute on chronic combined systolic (congestive) and diastolic (congestive) heart failure; N17.0 Acute kidney failure with tubular necrosis; L03.116 Cellulitis of left lower limb; L03.115 Cellulitis of right lower limb; E87.3 Alkalosis; I13.0 Hypertensive heart and chronic kidney disease with heart failure and stage 1 through stage 4 chronic kidney disease, or unspecified chronic kidney disease; E66.2 Morbid (severe) obesity with alveolar hypoventilation; Z68.43 Body mass index [BMI] 50.0-59.9, adult; Z20.822 Contact with and (suspected) exposure to COVID-19; N18.9 Chronic kidney disease, unspecified; E88.810 Metabolic syndrome; D75.839 Thrombocytosis, unspecified; I27.20 Pulmonary hypertension, unspecified; Z90.710 Acquired absence of both cervix and uterus; Z88.5 Allergy status to narcotic agent; Z90.49 Acquired absence of other specified parts of digestive tract; Z79.899 Other long term (current) drug therapy; Z88.8 Allergy status to other drugs, medicaments and biological substances
CPT/HCPCS: 36415; 36600; 70450; 71045; 80048; 80053; 80202; 81001; 82565; 82805; 82962; 83735; 83880; 84484; 85025; 85610; 85730; 87040; 87426; 87804; 93005; 93970; 97110; 97116; 97163; 97530; G0378; J0713; J2543